=== PATIENT | female | born 1945 | race Caucasian/White ===

== ENCOUNTER → 2016-04-15 | Outpatient (CLI) | payer OTHER ==
[~2016-04-15] MED LIST: BUDE160A3 INH; DULO60CA PO; FENO160T8 PO; FER325T PO; IMIQ5CRE4 EX; LOSA50TA6 PO; METF-312 PO; METO25TA62 PO; MONT10TA23 PO; MONT5CHW17 PO; SIMV-8 PO; WARF2.5T39 PO
== END | disposition home or self-care (01) ==
LOC: LAB 14:09
PROVIDERS: ATTEND Family Medicine
DX: E11.9 Type 2 diabetes mellitus without complications (principal)
CPT/HCPCS: 36415; 83036

== ENCOUNTER 2016-06-03 16:44 | Emergency (ER) | payer OTHER ==
[~2016-06-03] VITALS: Ht 157.5 cm; Wt 77.1 kg
[2016-06-03 19:40] VITALS: BP 132/80
[2016-06-03] MEDS ORDERED: TETANUS-DIPTH-ACEL PERTUSSIS 0.5ML SYRG IM ONE (21:00)
[2016-06-03] MEDS ORDERED: NEOMYCIN-BACITRACIN-POLYM UNITDOSE PKG TOP OINT TOP ONE (21:00)
== END 2016-06-03 22:29 | disposition home or self-care (01) ==
LOC: ER 16:48
DX: S61.512A Laceration without foreign body of left wrist, initial encounter (principal); S63.502A Unspecified sprain of left wrist, initial encounter; S60.222A Contusion of left hand, initial encounter; S00.03XA Contusion of scalp, initial encounter; J45.909 Unspecified asthma, uncomplicated; J44.9 Chronic obstructive pulmonary disease, unspecified; I11.0 Hypertensive heart disease with heart failure; I50.9 Heart failure, unspecified; E11.9 Type 2 diabetes mellitus without complications; Z23 Encounter for immunization; Z88.6 Allergy status to analgesic agent; Z88.1 Allergy status to other antibiotic agents; W19.XXXA Unspecified fall, initial encounter; Y93.01 Activity, walking, marching and hiking; Y99.8 Other external cause status; Y92.89 Other specified places as the place of occurrence of the external cause
CPT/HCPCS: 12002; 70450; 73110; 73130; 90471; 90715

== ENCOUNTER 2024-01-10 11:51 | Inpatient (IN) | payer OTHER ==
[~2024-01-10] VITALS: Ht 170.2 cm; Wt 87.0 kg
[~2024-01-10 11:51] MED LIST changes: -DULO60CA PO; +DULO60CA41 PO; +EZET10TA22 PO; +FENO160T PO; -FENO160T8 PO; +FLUT1AER17 IN; +FURO40TA4 PO; +HYDR25TA88 PO; +IMIQ5CRE EX; -IMIQ5CRE4 EX; +INSLANTI SC; +INSU100I54 SC; +LOSA-534 PO; -LOSA50TA6 PO; -METF-312 PO; +METF-370 PO; -METO25TA62 PO; +METO25TA93 PO; +MONT5CHW12 PO; -MONT5CHW17 PO; +PRED1PAK8 PO; +SEMA2INJ3 SC; -SIMV-8 PO; +SIMV20TA20 PO; +TRAZ-227 PO; +WARF-110 PO; -WARF2.5T39 PO
--- NOTE | 2024-01-10 12:05 | ECG ---
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
--- NOTE | 2024-01-10 12:09 | ED.PDOC ---
History of Present Illness HPI Comments 78-year-old female brought by paramedics after a fall which happened last Tuesday. Patient was standing and fell right onto her face. Came today because she is having severe right shoulder right rib pain unable to ambulate because of the pain. He is able to move her extremities. She does have swelling of the left knee which has been there for almost a year. She had revision of her left knee one year ago at [facility]. Patient history of hypotension atrial fibrillation currently on warfarin. The pain of the right shoulder is 10/10. She has not seen any provider after the fall. She does have a bruise on the left upper lip. She does not remember the event clearly. She denies any symptoms prior to the fall. Chief Complaint: Fall Injury Time Seen by MD: 11:52 Primary Care Provider: DIANNE Reviewed Notes: Nurses Notes, Medications, Allergies Allergies: Coded Allergies: Codeine (Unverified Allergy, Severe, 01/23/14) Sulfa Antibiotics (Unverified Allergy, Severe, 01/23/14) Home Meds Active Scripts Ferrous Sulfate (FERROUS SULFATE) 325 Mg Tb, 325 MG PO TIDWM, #100 BOTTLE Prov:SHERLYN ARCE MD 11/01/14 Reported Medications Budesonide-Formoterol Fumarate (Symbicort) 1 Aer Aer, 2 PUFF INH BID, #10.6 GRAMS 3 Refills 10/28/14 Warfarin Sodium (Warfarin Sodium) 2.5 Mg Tab, 2.5 MG PO DAILY, TAB 10/28/14 Montelukast Sodium (Singulair) 10 Mg Tab, 500 MG PO DAILY, TAB 10/28/14 Montelukast Sodium (Singulair) 5 Mg Chw, 5 MG PO, CHW 10/28/14 Losartan Potassium (Losartan Potassium) 50 Mg Tab, 60 MG PO DAILY, TAB 10/28/14 Fenofibrate (Fenofibrate) 160 Mg Tab, 145 MG PO DAILY, TAB 10/28/14 Simvastatin (Simvastatin) 20 Mg Tab, 20 MG PO DAILY, TAB 10/28/14 Metformin Hydrochloride (Metformin Hcl) 500 Mg Tab, 500 MG PO BID, TAB 10/28/14 Metoprolol Succinate (Metoprolol Succinate Er) 25 Mg Tab, 25 MG PO DAILY, TAB 10/28/14 Imiquimod (Imiquimod) 5 % Cre, 5 % EX, CRE 10/28/14 Duloxetine Hcl (Cymbalta) 60 Mg Cap, 60 MG PO DAILY, CAP 10/28/14 Information Source: Patient, Emergency Med Personnel Mode of Arrival: EMS Severity: Moderate Timing: Days Duration: Since onset Past Medical History PAST MEDICAL HISTORY: AFIB, DM, HTN Surgical History: Denies all surgeries COMMERCIAL LITIGATION ATTORNEY History: No Pertinent COMMERCIAL LITIGATION ATTORNEY History Family History Family History: Unknown Social History Smoker: Non-Smoker Alcohol: Denies ETOH Use Drugs: Denies Drug Use Lives In: Home Constitutional: denies: chills, diaphoresis, fatigue, fever, malaise, sweats, weakness, others EENTM: denies: blurred vision, double vision, ear bleeding, ear discharge, ear drainage, ear pain, ear ringing, eye pain, eye redness, hearing loss, mouth pain, mouth swelling, nasal discharge, nose bleeding, nose congestion, nose pain, photophobia, tearing, throat pain, throat swelling, voice changes, others Respiratory: denies: cough, hemoptysis, orthopnea, SOB at rest, shortness of breath, SOB with excertion, stridor, wheezing, others Cardiovascular: denies: chest pain, dizzy spells, diaphoresis, Dyspnea on exertion, edema, irregular heart beat, left arm pain, lightheadedness, palpitations, PND, syncope, others Gastrointestinal: denies: abdomen distended, abdominal pain, blood streaked bowels, constipated, diarrhea, dysphagia, difficulty swallowing, hematemesis, melena, nausea, poor appetite, poor fluid intake, rectal bleeding, rectal pain, vomiting, others Genitourinary: denies: abnormal vagina bleeding, burning, dyspareunia, dysuria, flank pain, frequency, hematuria, incontinence, pain, , vagina discharge, urgency, others Neurological: denies: dizziness, fainting, headache, left sided numbness, left sided weakness, numbness, paresthesia, pre-existing deficit, right sided numbness, right sided weakness, seizure, speech problems, tingling, tremors, weakness, others Musculoskeletal: reports: others (Right shoulder); denies: back pain, gout, joint pain, joint swelling, muscle pain, muscle stiffness, neck pain Integumetry: denies: bruises, change in color, change in hair/nails, dryness, laceration, lesions, lumps, rash, wounds, others Allergic/Immunocompromised: denies: Difficulty Healing, Frequent Infections, Hives, Itching, others Hematologic/Lymphatic: denies: anemia, blood clots, easy bleeding, easy bruisin g, swollen glands, others Endocrine: denies: excessive hunger, excessive sweating, excessive thirst, excessive urination, flushing, intolerance to cold, intolerance to heat, unexplained weight gain, unexplained weight loss, others Psychiatric: denies: anxiety, bipolar disorder, depression, hopeless, panic disorder, schizophrenia, sleepless, suicidal, others Physical Exam General Appearance: Moderate Distress HEENT: Normal ENT Inspection, Pharynx Normal, TMs Normal Neck: Full Range of Motion, Non-Tender, Normal, Normal Inspection Respiratory: Chest Non-Tender, Lungs Clear, No Accessory Muscle Use, No Respiratory Distress, Normal Breath Sounds Cardiovascular: No Edema, No JVD, No Murmur, No Gallop, Normal Peripheral Pulses, Regular Rate/Rhythm Breast Exam: Deferred Gastrointestinal: No Organomegaly, Non Tender, No Pulsatile Mass, Normal Bowel Sounds, Soft Genitalia: Deferred Pelvic: Deferred Rectal: Deferred Extremities: No calf tenderness, Normal capillary refill, Non-tender, No pedal edema Musculoskeletal : Apperance: Normal Neurologic: Alert, lead accountant II-XII nml as Tested, No Motor Deficits, Normal Affect, Normal Mood, No Sensory Deficits Cerebellar Function: NOT DONE Reflexes: NOT DONE Skin: Dry, Normal Color, Warm Peripheral Pulses: 3+ Radial (R), 3+ Radial (L) Lymphatic: No Adenopathy Was a procedure done? Was a procedure done?: No Differential Dx Considerations may include: Head injury Musculoskeletal pain X-Ray, Labs, Meds, VS Vital Signs Date Time Temp Pulse Resp B/P (MAP) Pulse Ox O2 Delivery O2 Flow Rate FiO2 01/10/24 13:45 70 16 140/69 (92) 91 01/10/24 13:44 70 16 140/69 01/10/24 13:18 71 16 148/59 01/10/24 11:59 81 01/10/24 11:57 98.9 95 18 141/83 (102) 96 Lab Test 01/10/24 13:13 Range/Units White Blood Count 14.7 H 4.4-10.8 10^3/uL Red Blood Count 4.37 4.0-5.20 10^6/uL Hemoglobin 14.8 12.2-16.2 g/dL Hematocrit 44.9 36.0-46.0 % Mean Corpuscular Volume 102.7 H 80.0-100.0 fL Mean Corpuscular Hemoglobin 33.9 H 28.0-32.0 pg Mean Corpuscular Hemoglobin Concent 33.0 32.0-36.0 g/dL Red Cell Distribution Width 14.3 11.8-14.3 % Platelet Count 257 140-450 10^3/uL Mean Platelet Volume 9.9 6.9-10.8 fL Neutrophils (%) (Auto) 91.1 H 37.0-80.0 % Lymphocytes (%) (Auto) 7.0 L 10.0-50.0 % Monocytes (%) (Auto) 1.8 0.0-12.0 % Eosinophils (%) (Auto) 0.0 0.0-7.0 % Basophils (%) (Auto) 0.1 0.0-2.0 % Neutrophils # (Auto) 13.4 H 1.6-8.6 10 ^3/uL Lymphocytes # (Auto) 1.0 0.4-5.4 10 ^3/uL Monocytes # (Auto) 0.3 0-1.3 10 ^3/uL Eosinophils # (Auto) 0 0-0.8 10 ^3/uL Basophils # (Auto) 0 0-0.2 10 ^3/uL Nucleated Red Blood Cells 0.0 % Sodium Level 127 L 136-145 mmol/L Potassium Level 5.3 H 3.5-5.1 mmol/L Chloride Level 94 L 98-107 mmol/L Carbon Dioxide Level 23 20-31 mmol/L Anion Gap 10 5-15 Blood Urea Nitrogen 49 H 9-23 mg/dL Creatinine 2.27 H 0.550-1.02 mg/dL Glomerular Filtration Rate Calc 21 >90 mL/min BUN/Creatinine Ratio 21.6 H 10.0-20.0 Serum Glucose 661 *H 74-106 mg/dL Calcium Level 9.4 8.7-10.4 mg/dL Troponin I High Sensitivity 12 </=34 ng/L Beta-Hydroxybutyric Acid Pending Current Medications Medications (Trade) Dose Ordered Sig/Jennifer Route Start Time Stop Time Status Last Admin Morphine Sulfate 4 mg ONCE ONCE IV 01/10/24 13:00 01/10/24 13:01 DC 01/10/24 13:18 Ondansetron HCl (Zofran) 4 mg ONCE ONCE IV 01/10/24 13:00 01/10/24 13:01 DC 01/10/24 13:16 Sodium Chloride 1,000 ml @ 1,000 mls/hr Q1H ONCE IV 01/10/24 14:30 01/10/24 15:29 01/10/24 14:36 Insulin Human Regular (InsuLIN R) 10 units ONCE ONCE IV 01/10/24 14:30 01/10/24 14:50 DC 01/10/24 14:38 Patient alert. Has a bruise on the left upper lip. Vitals stable. Answering all questions. Status post fall last Tuesday. History of atrial fibrillation. She does take warfarin. She has not been seen by any provider since her fall. Having severe pain. Reviewed her previous visit. Blood sugar elevated. Anion gap within normal limits. Kidney function elevated. Possible dehydration. Establish intravenous access. Was given fluids. Was given pain medication. WBC elevated. Possible sepsis from urine. Explained to the patient. Time of 1ST Reevaluation: 12:07 Reevaluation 1ST: Unchanged Patient Education/Counseling: Diagnosis, Treatment, Prognosis Family Education/Counseling: No Family Present Departure 1 Departure Time of Disposition: 12:08 Impression: Primary Impression: Head injury Qualified Codes: S09.90XA - Unspecified injury of head, initial encounter Additional Impressions: Costochondral chest pain Musculoskeletal pain Hyperglycemia Sepsis due to urinary tract infection Dehydration Disposition: ADMITTED INPATIENT Admit to: Med Surg Condition: Guarded Critical Care Note Critical Care Time?: Yes (45 min-critical care time only) Stability Stability form required: No Heart Score Heart Score: Heart Score Response (Comments) Value History Slightly Suspicious 0 EKG Normal 0 Age >65 2 Risk Factors >3 or Hx ASHD 2 Troponin Normal limit 0 Total 4 JAVAD ASHFORD MD Jan 10, 2024 12:09
--- NOTE | 2024-01-10 13:01 | DVH ---
EXAM: CT HEAD WITHOUT CONTRAST HISTORY: fall COMPARISON: None TECHNIQUE: Axial images were obtained and reformatted in coronal and sagittal planes. All CT scans at this medical facility are performed using dose modulation techniques as appropriate t o a performed exam including the following: Automated exposure control was utilized; adjustment of th e MA and/or KV according to patient size; and use of iterative reconstruction technique. CT Dose: CTDI volume is 50 mGy. Dose-length product is 704 mGy*cm FINDINGS: There is age concordant parenchymal volume loss. There are mild patchy chronic small-vessel ischemic changes in the supratentorial white matter. There is a small hypodense focus in the right basal gangl ia which may represent a chronic lacunar infarct. There is no evidence of acute intracranial hemorrha ge, mass, mass effect midline shift. There is no hydrocephalus or extra-axial fluid collection. The visualized paranasal sinuses and mastoid air cells are clear. The calvarium is intact. IMPRESSION: 1. No acute intracranial process. HS:Y
--- NOTE | 2024-01-10 13:02 | DVH ---
CLINICAL INDICATION: Trauma, pain TECHNIQUE: XY R SHOULDER 2+ VIEW XRAY Comparison: None FINDINGS/IMPRESSION: There is no evidence of acute fracture or dislocation. Soft tissues are unremarkable.
--- NOTE | 2024-01-10 13:03 | DVH ---
CHEST RADIOGRAPH Indication:fall Technique: Single frontal view of the chest with 3 views of the right ribs were obtained. Comparison: None FINDINGS: Lines and Tubes: None Lungs: No focal consolidation. Pleura: No effusion. No pneumothorax. Cardiomediastinal contours: [id number]-lr-[id number] cardiomegaly with mild atherosclerotic calcification and uncoiling of the aorta. Bones: No acute osseous abnormality. No acute rib fractures are visualized. 6 mm nodular density of t he right lateral chest wall / breast tissue which may represent a nodule /lymph node. IMPRESSION: No acute cardiopulmonary disease. No acute rib fractures.
[2024-01-10] MEDS: ONDANSETRON HCL 4 MG/2 ML VIAL IV ONE (13:16)
[2024-01-10] MEDS: MORPHINE SULFATE 4 MG/ML SYR/VIAL IV ONE (13:18)
[2024-01-10 13:45] LABS: Basophils # (auto) 0 10 ^3/uL (0-0.2); Basophils % (auto) 0.1 % (0.0-2.0); Eosinophils # (auto) 0 10 ^3/uL (0-0.8); Monocytes # (auto) 0.3 10 ^3/uL (0-1.3)
[2024-01-10 13:47] LABS: Hematocrit 44.9 % (36.0-46.0); Hemoglobin 14.8 g/dL (12.2-16.2); Mean Corpuscular Hemoglobin 33.9 pg (28.0-32.0); Mean Corpuscular Volume 102.7 fL (80.0-100.0); Monocytes % (auto) 1.8 % (0.0-12.0); Neutrophils # (auto) 13.4 10 ^3/uL (1.6-8.6); Neutrophils % (auto) 91.1 % (37.0-80.0); Platelet Count (auto) 257 10^3/uL (140-450); Red Blood Cells 4.37 10^6/uL (4.0-5.20); Red Cell Distribution Width 14.3 % (11.8-14.3); White Blood Cell 14.7 10^3/uL (4.4-10.8)
[2024-01-10 13:54] LABS: Chloride 94 mmol/L (98-107); Potassium 5.3 mmol/L (3.5-5.1); Sodium 127 mmol/L (136-145)
[2024-01-10 13:55] LABS: Anion Gap 10 (5-15); Calcium 9.4 mg/dL (8.7-10.4); Carbon Dioxide 23 mmol/L (20-31)
[2024-01-10 14:00] LABS: BUN/Creatinine Ratio 21.6 (10.0-20.0); Blood Urea Nitrogen 49 mg/dL (9-23)
[2024-01-10 14:16] LABS: Glucose 661 mg/dL (74-106)
[2024-01-10] MEDS: SODIUM CHLORIDE 0.9% 1,000 ML IV ONE (14:36)
[2024-01-10] MEDS: InsuLIN REG 1unit/0.01ml Soln (100units/ml) IV ONE (14:38)
[2024-01-10 15:00] VITALS: PULSE 67; RESP 14; O2SAT 93
[2024-01-10] MEDS: PIPERACILLIN-TAZOB 3.375GM 100 ML IV ONE (15:21)
[2024-01-10 18:39] LABS: Urine Bacteria FEW /hpf (None Seen); Urine Blood Negative /uL (Negative); Urine Budding Yeast OCCASIONAL /hpf (None Seen); Urine Clarity Clear (Clear); Urine Color Colorless (Yellow); Urine Protein, UAD Negative (Negative); Urine Specific Gravity 1.023 (1.001-1.035); Urine Urobilinogen Normal (Negative); Urine WBC 58 /hpf (0 - 5)
--- NOTE | 2024-01-10 19:14 | DVHHP2 ---
History of Present Illness Reason for Visit: Fall with injury History of Present Illness The patient is a 78-year-old female with past medical history of AFib, DM, and hypertension who presented to [facility] ED for evaluation of fall at home last Tuesday. Patient reports she was standing and fell right onto her face, having severe right shoulder, right rib pain, and unable to ambulate because of the pain, rating pain 10/10 numeric scale, getting worse today that prompted this visit. She had revision of her left knee one year ago at [facility]. Patient was seen and evaluated in the ED, laboratory data shows WBC 14.7, platelets 257, sodium 127, potassium 5.3, BUN 49, creatinine 2.27, glucose 661, troponin 12, acetone 0.482, blood pressure 145 over 80, heart rate 82, temperature 98.9 F, O2 saturation 93% on oxygen. Head CT showed no acute intracranial process. Patient was started on IV antibiotic regimen Zosyn, please see medication orders section in the computer. On my assessment, patient denies chest pain, no headache, no dizziness, no diaphoresis, currently on oxygen, no nausea, no vomiting, no fever, no chills. Patient was admitted for further evaluation and medical management. Past Medical History AFIB, DM, HTN Past Surgical History Denies all surgeries Family History Reviewed, noncontributory to the management of this case. Past Social History The patient lives at home, denies smoking, alcohol or illicit drugs abuse. Review of Systems Constitutional: Yes: Weakness; No: Fever, Chills, Sweats, Malaise, Other Eyes: No: Pain, Vision change, Conjunctivae inflammation, Eyelid inflammation, Other, Redness ENT: No: Ear pain, Ear discharge, Nose pain, Nose discharge, Nose congestion, Mouth pain, Mouth swelling, Throat pain, Throat swelling, Other Respiratory: No: Cough, Dry, Shortness of breath, SOB with excertion, Wheezing, Hemoptysis, Pleuritic Pain, Sputum, Wheezing, Other Cardiovascular: No: Chest Pain, Palpitations, Orthopnea, Paroxysmal Noc. Dyspnea, Edema, Lt Headedness, Other Gastrointestinal: No: Nausea, Vomiting, Abdominal Pain, Diarrhea, Constipation, Melena, Hematochezia, Other Genitourinary: No Dysuria, No Frequency, No Incontinence, No Hematuria, No Retention, No Other Musculoskeletal: other (Right rib pain), shoulder pain (Right ); No: neck pain, arm pain, back pain, hand pain, leg pain, foot pain Skin: No: Rash, Lesions, Jaundice, Bruising, Other Neurological: No: Weakness, Numbness, Incoordination, Change in speech, Co nfusion, Seizures, Other Allergies: Coded Allergies: Codeine (Unverified Allergy, Severe, 01/23/14) Sulfa Antibiotics (Unverified Allergy, Severe, 01/23/14) Exam Vital Signs Vital Signs Date Time Temp Pulse Resp B/P (MAP) Pulse Ox O2 Delivery O2 Flow Rate FiO2 01/10/24 18:42 80 14 145/80 (101) 93 01/10/24 15:00 Nasal Cannula* 2 28 01/10/24 11:57 98.9 General Appearance: Alert, Oriented X3, Cooperative, No acute distress HEENT: Atraumatic, PERRLA, EOMI, Mucous membr. moist/pink Respiratory: Clear to auscultation, Normal air movement Cardiovascular: Regular rate, Normal S1, Normal S2, No murmurs Abdominal: Normal bowel sounds, Soft, No tenderness, No hepatospenomegaly, No masses Extremities: No clubbing, No cyanosis, No edema, Normal pulses, No tenderness/swelling Skin: No rashes, No breakdown, No significant lesion Neuro: Normal speech, Normal tone, Sensation intact, Cranial nerves 3-12 NL, Reflexes 2+, Other (Generalized weakness) Psych/Mental Status: Mental status NL, Mood NL Labs/Xrays Labs Test 01/10/24 18:22 01/10/24 13:13 Range/Units Urine Color Colorless Yellow Urine Clarity Clear Clear Urine pH 5.0 5.0-9.0 Urine Specific [place] 1.023 1.001-1.035 Urine Protein Negative Negative Urine Ketones Negative Negative Urine Blood Negative Negative /uL Urine Nitrite Negative Negative Urine Bilirubin Negative Negative Urine Urobilinogen Normal Negative mg/dL Urine Leukocyte Esterase 2+ Negative /uL Urine RBC 6 0 - 4 /hpf Urine WBC 58 0 - 5 /hpf Urine Squamous Epithelial Cells Few <5 /hpf Urine Bacteria Few H None Seen /hpf Urine Yeast (Budding) Occasional None Seen /hpf Urine Glucose 4+ H Normal mg/dL White Blood Count 14.7 H 4.4-10.8 10^3/uL Red Blood Count 4.37 4.0-5.20 10^6/uL Hemoglobin 14.8 12.2-16.2 g/dL Hematocrit 44.9 36.0-46.0 % Mean Corpuscular Volume 102.7 H 80.0-100.0 fL Mean Corpuscular Hemoglobin 33.9 H 28.0-32.0 pg Mean Corpuscular Hemoglobin Concent 33.0 32.0-36.0 g/dL Red Cell Distribution Width 14.3 11.8-14.3 % Platelet Count 257 140-450 10^3/uL Mean Platelet Volume 9.9 6.9-10.8 fL Neutrophils (%) (Auto) 91.1 H 37.0-80.0 % Lymphocytes (%) (Auto) 7.0 L 10.0-50.0 % Monocytes (%) (Auto) 1.8 0.0-12.0 % Eosinophils (%) (Auto) 0.0 0.0-7.0 % Basophils (%) (Auto) 0.1 0.0-2.0 % Neutrophils # (Auto) 13.4 H 1.6-8.6 10 ^3/uL Lymphocytes # (Auto) 1.0 0.4-5.4 10 ^3/uL Monocytes # (Auto) 0.3 0-1.3 10 ^3/uL Eosinophils # (Auto) 0 0-0.8 10 ^3/uL Basophils # (Auto) 0 0-0.2 10 ^3/uL Nucleated Red Blood Cells 0.0 % Sodium Level 127 L 136-145 mmol/L Potassium Level 5.3 H 3.5-5.1 mmol/L Chloride Level 94 L 98-107 mmol/L Carbon Dioxide Level 23 20-31 mmol/L Anion Gap 10 5-15 Blood Urea Nitrogen 49 H 9-23 mg/dL Creatinine 2.27 H 0.550-1.02 mg/dL Glomerular Filtration Rate Calc 21 >90 mL/min BUN/Creatinine Ratio 21.6 H 10.0-20.0 Serum Glucose 661 *H 74-106 mg/dL Calcium Level 9.4 8.7-10.4 mg/dL Troponin I High Sensitivity 12 </=34 ng/L Beta-Hydroxybutyric Acid 0.482 H < 0.4 mmol/L PATIENT: MURTAZA CROUCH ACCT: [id number] UNIT: [id number] : 1945 LOC: ER ROOM / BED: / AGE / SEX: 78 / F ADM STATUS: REG ER SERVICE 1209 ORDERING PHYSICIAN: JAVAD ASHFORD MD PROCEDURE(s): HWOCT - HEAD WITHOUT CONTRAST REASON: fall ORDER NUMBER(s): [id number], ACCESSION NUMBER(s): [id number] EXAM: CT HEAD WITHOUT CONTRAST HISTORY: fall COMPARISON: None TECHNIQUE: Axial images were obtained and reformatted in coronal and sagittal planes. All CT scans at this medical facility are performed using dose modulation techniques as appropriate to a performed exam including the following: Automated exposure control was utilized; adjustment of the MA and/or KV according to patient size; and use of iterative reconstruction technique. CT Dose: CTDI volume is 50 mGy. Dose-length product is 704 mGy*cm FINDINGS: There is age concordant parenchymal volume loss. There are mild patchy chronic small-vessel ischemic changes in the supratentorial white matter. There is a small hypodense focus in the right basal ganglia which may represent a chronic lacunar infarct. There is no evidence of acute intracranial hemorrhage, mass, mass effect midline shift. There is no hydrocephalus or extra-axial fluid collection. The visualized paranasal sinuses and mastoid air cells are clear. The calvarium is intact. IMPRESSION: 1. No acute intracranial process. ORDERING PHYSICIAN: JAVAD ASHFORD MD PROCEDURE(s): RSHD2 - R SHOULDER 2+ VIEW XRAY REASON: fall ORDER NUMBER(s): [id number], ACCESSION NUMBER(s): [id number] CLINICAL INDICATION: Trauma, pain TECHNIQUE: XY R SHOULDER 2+ VIEW XRAY Comparison: None FINDINGS/IMPRESSION: There is no evidence of acute fracture or dislocation. Soft tissues are unremarkable. ORDERING PHYSICIAN: JAVAD ASHFORD MD PROCEDURE(s): RRIBS - R RIB XRAY REASON: fall ORDER NUMBER(s): [id number], ACCESSION NUMBER(s): [id number] CHEST RADIOGRAPH Indication:fall Technique: Single frontal view of the chest with 3 views of the right ribs were obtained. Comparison: None FINDINGS: Lines and Tubes: None Lungs: No focal consolidation. Pleura: No effusion. No pneumothorax. Cardiomediastinal contours: [id number] cardiomegaly with mild atheroscl erotic calcification and uncoiling of the aorta. Bones: No acute osseous abnormality. No acute rib fractures are visualized. 6 mm nodular density of the right lateral chest wall/breast tissue which may represent a nodule /lymph node. IMPRESSION: No acute cardiopulmonary disease. No acute rib fractures. Assessment/Plan Assessment/Plan Head injury Dehydration Costochondral chest pain Musculoskeletal pain Diabetes mellitus with hyperglycemia Urinary tract infection Unspecified injury of head, initial encounter Plan 1. Admit to telemetry unit 2. Breathing treatment 3. Pain control management 4. IV antibiotic management 5. Management of fluids and electrolytes 6. Consultation for Nephrology 7. Diagnostic test head CT 8. DVT prophylaxis-on Coumadin per pharmacy 9. Repeat labs CBC, CMP in a.m. 10. Home medication reviewed and reconciled 11. Continue with current medical management 12. Treatment plan discussed with patient and RN. Patient verbalized u nderstanding. Plan discussed with: Patient, Other (RN) My Orders Orders - MARYCRUZ LEO DNP Procedure Category Date Status Time Consistent DIET 01/11/24 Verified Carb(Ccho)Diabetes Breakfast Clonidine Hcl Tablet PHA 01/10/24 Verified (Catapres Tablet) 19:15 Problem List: (1) Head injury (2) Musculoskeletal pain (3) Dehydration (4) Urinary tract infection (5) Costochondral chest pain (6) Unspecified injury of head, initial encounter (7) Diabetes mellitus with hyperglycemia Date of Service: Jan 10, 2024 Billing Provider: MARYCRUZ LEO DNP Common Visit Codes: [id number] INP/OBS CARE (HIGH) MARYCRUZ LEO DNP Jan 10, 2024 19:14
[2024-01-10] MEDS ORDERED: MORPHINE SULFATE INJ 2 MG/ml SYRG IV PRN (19:15)
[2024-01-10] MEDS ORDERED: NITROGLYCERIN 0.4 MG SL TAB SL PRN (19:15)
[2024-01-10] MEDS ORDERED: cloNIDine HCL 0.1 MG TAB PO PRN (19:15)
[2024-01-10] MEDS ORDERED: DEXTROSE (50%) 50ML SYRG IV PRN (19:15)
[2024-01-10] MEDS ORDERED: DOCUSATE SOD 100 MG CAP PO PRN (19:15)
[2024-01-10] MEDS: ACCU-CHEK COMFORT CURVE STRIP VI SCH (20:00)
[2024-01-10 20:15] VITALS: PULSE 80; RESP 16; O2SAT 92
[2024-01-10] MEDS: cefTRIAXone 1GM/50ML D5W 50 ML IV SCH (21:34)
[2024-01-10] MEDS: SODIUM ZIRCONIUM CYCL 10 GM PAK PO ONE (21:34)
[2024-01-10] MEDS: SODIUM CHLORIDE 0.9% 1,000 ML IV SCH (21:34)
[2024-01-10] MEDS: InsuLIN REG 1unit/0.01ml Soln (100units/ml) SC SCH (21:35)
[2024-01-10 21:46] LABS: INR 1.6 (0.9-1.15); Partial Thromboplastin Time 30.1 SEC (24.5-34.5); Prothrombin Time 16.4 sec (9.3-11.8)
[2024-01-10 22:21] VITALS: O2SAT 94
[2024-01-10] MEDS: METOPROLOL TARTRATE 25 MG TAB PO SCH (22:32)
[2024-01-10] MEDS: WARFARIN SODIUM 2 MG TAB PO ONE (22:33)
[2024-01-10] MEDS: MORPHINE SULFATE INJ 2 MG/ml SYRG IV PRN (22:35)
[2024-01-10] MEDS ORDERED: WARF4TAB69 PO (22:43)
[2024-01-10] MEDS ORDERED: POTA-228 PO (22:45)
[2024-01-11] VITALS (8 sets, daily range): BP systolic 103–159; BP diastolic 60–78; PULSE 58–82; RESP 17–20; TEMP 96–98.1; O2SAT 91–96
[2024-01-11] MEDS: ACETAMINOPHEN 325 MG TAB PO PRN (00:15)
[2024-01-11 06:47] LABS: Basophils # (auto) 0.1 10 ^3/uL (0-0.2); Basophils % (auto) 0.4 % (0.0-2.0); Eosinophils # (auto) 0 10 ^3/uL (0-0.8); Eosinophils % (auto) 0.1 % (0.0-7.0); Hematocrit 41.3 % (36.0-46.0); Hemoglobin 14.1 g/dL (12.2-16.2); Lymphocytes # (auto) 2.5 10 ^3/uL (0.4-5.4); Mean Corpuscular Volume 99.8 fL (80.0-100.0); Monocytes # (auto) 0.8 10 ^3/uL (0-1.3); Monocytes % (auto) 5.5 % (0.0-12.0); Neutrophils # (auto) 11.3 10 ^3/uL (1.6-8.6); Platelet Count (auto) 249 10^3/uL (140-450); Red Blood Cells 4.14 10^6/uL (4.0-5.20); Red Cell Distribution Width 14.7 % (11.8-14.3); White Blood Cell 14.7 10^3/uL (4.4-10.8)
[2024-01-11 06:52] LABS: INR 1.76 (0.9-1.15); Partial Thromboplastin Time 31.6 SEC (24.5-34.5); Prothrombin Time 17.9 sec (9.3-11.8)
[2024-01-11 06:53] LABS: Alanine Aminotransferase 40 U/L (7-40); Albumin 3.9 g/dL (3.2-4.8); Alkaline Phosphatase 167 U/L (46-116); Anion Gap 7 (5-15); Aspartate Aminotransferase 26 U/L (13-40); BUN/Creatinine Ratio 20.9 (10.0-20.0); Blood Urea Nitrogen 42 mg/dL (9-23); Calcium 9.6 mg/dL (8.7-10.4); Carbon Dioxide 24 mmol/L (20-31); Chloride 106 mmol/L (98-107); Glucose 137 mg/dL (74-106); Potassium 3.8 mmol/L (3.5-5.1); Sodium 137 mmol/L (136-145)
[2024-01-11 06:54] LABS: Bilirubin, Total 0.9 mg/dL (0.2-1.0); Total Protein 6.5 g/dL (5.7-8.2)
[2024-01-11] MEDS ORDERED: TRAM50TA2 PO (09:32)
[2024-01-11] MEDS ORDERED: TORS10TA12 PO (09:32)
[2024-01-11] MEDS ORDERED: ALLO100T PO (09:32)
[2024-01-11] MEDS ORDERED: ATOR-47 PO (09:32)
--- NOTE | 2024-01-11 11:32 | DVH ---
RENAL ULTRASOUND CLINICAL HISTORY: CKD TECHNIQUE: Multiple ultrasound images of the kidneys and bladder were obtained. COMPARISON: None FINDINGS: The right kidney measures 8.0 cm in length. The left kidney measures 8.3 cm. Both kidneys appear echo genic with thin renal cortex. There is no sonographic evidence of discrete renal lesion, nephrolithia sis or hydronephrosis. Bladder grossly appears unremarkable with prevoid volume of 175 cc. IMPRESSION: 1. Echogenic renal parenchyma with thin renal cortex likely related to medical renal disease. HS:Y
--- NOTE | 2024-01-11 13:16 | DVHCONRES ---
Date Seen: Jan 11, 2024 Resident Creating Document: JHAJJ,SARPUNEET RESIDENT Referring Physician MIGUEL Harrison Reason for Consultation Acute renal injury History of Present Illness Patient is a 78-year-old female with a past medical history of type 2 diabetes mellitus, hypertension, congestive heart failure, CKD stage 3, COPD, paroxysmal atrial fibrillation came the ED with a chief complaint of right shoulder and right chest pain following a history of fall. Patient reported that she fell in her apartment and hit her head on Tuesday last week following which she started having pain in the right showed in the right side chest. Pain gradually worsened which prompted her to come to the hospital for further evaluation. Patient reported that her blood pressures had been on the higher side in the 180-190 SBP and her blood sugar levels were increased at home greater than 350 mg/dL which was the highest reading on the glucometer. Head CT did not show any acute intracranial process, chest x-ray shows no acute cardiopulmonary disease, no acute rib fractures. Shoulder x-rays shows no acute fracture or dislocation. Renal ultrasound shows right kidney 8 cm in length, left kidney 8.3 cm in length, echogenic renal parenchyma with thin renal cortex likely related to medical renal disease. Past Medical History type 2 diabetes mellitus, hypertension, congestive heart failure, CKD stage 3, COPD, paroxysmal atrial fibrillation, history of skin cancer Past Surgical History None reported Family History: FH: heart attack G8 MOTHER FH: kidney disease G8 FATHER FH: stroke G8 MOTHER Ischemic heart disease G8 FATHER Social History Lives with family denies smoking, alcohol, drug use Allergies: Coded Allergies: Codeine (Unverified Allergy, Severe, 01/23/14) Sulfa Antibiotics (Unverified Allergy, Severe, 01/23/14) Home Meds Active Scripts Ferrous Sulfate (FERROUS SULFATE) 325 Mg Tb, 325 MG PO TIDWM, #100 BOTTLE Prov:SHERLYN ARCE MD 11/01/14 Reported Medications Semaglutide (Ozempic) 2 Mg/3 Ml Inj, 2 MG SC, INJ 01/11/24 Insulin Glargine (Lantus) 100 Unit/Ml Inj, 100 UNIT SC, INJ 01/11/24 Hydralazine Hcl (Hydralazine Hcl) 25 Mg Tab, 25 MG PO for 30 Days, MG 01/11/24 Ezetimibe (Zetia) 10 Mg Tab, 10 MG PO, TAB 01/11/24 Allopurinol (Allopurinol) 100 Mg Tab, 100 MG PO DAILY for 30 Days, MG 01/11/24 Tramadol Hcl (Tramadol Hcl) 50 Mg Tab, 50 MG PO Q6HP PRN for PAIN SCALE 1 THRU 6, MG 01/11/24 Atorvastatin Calcium (ATORVASTATIN CALCIUM) 80 Mg Tab, 80 MG PO DAILY, TAB 01/11/24 Furosemide (Furosemide) 40 Mg Tab, 40 MG PO, TAB 01/11/24 Trazodone Hcl (Trazodone Hcl) 50 Mg Tab, 50 MG PO, MG 01/11/24 Duloxetine Hcl (Cymbalta) 60 Mg Cap, 60 MG PO, CAP 01/11/24 Torsemide (Torsemide) 10 Mg Tab, 10 MG PO, TAB 01/11/24 Potassium Chloride (Potassium Chloride ER) 10 Meq Tab, 1 TAB PO BID 01/10/24 Warfarin Sodium (Warfarin Sodium) 2 Mg Tab, 1 TAB PO DAILY 01/10/24 Budesonide-Formoterol Fumarate (Symbicort) 1 Aer Aer, 2 PUFF INH BID, #10.6 GRAMS 3 Refills 10/28/14 Montelukast Sodium (Singulair) 10 Mg Tab, 500 MG PO DAILY, TAB 10/28/14 Montelukast Sodium (Singulair) 5 Mg Chw, 5 MG PO, CHW 10/28/14 Simvastatin (Simvastatin) 20 Mg Tab, 20 MG PO DAILY, TAB 10/28/14 Metoprolol Succinate (Metoprolol Succinate Er) 25 Mg Tab, 25 MG PO DAILY, TAB 10/28/14 Imiquimod (Imiquimod) 5 % Cre, 5 % EX, CRE 10/28/14 Discontinued Reported Medications Warfarin Sodium (Warfarin Sodium) 2.5 Mg Tab, 2.5 MG PO DAILY, TAB 10/28/14 Losartan Potassium (Losartan Potassium) 50 Mg Tab, 60 MG PO DAILY, TAB 10/28/14 Fenofibrate (Fenofibrate) 160 Mg Tab, 145 MG PO DAILY, TAB 10/28/14 Metformin Hydrochloride (Metformin Hcl) 500 Mg Tab, 500 MG PO BID, TAB 10/28/14 Duloxetine Hcl (Cymbalta) 60 Mg Cap, 60 MG PO DAILY, CAP 10/28/14 Current Medications Current Medications Medications (Trade) Dose Ordered Sig/Jennifer Route PRN Reason Start Time Stop Time Status Last Admin Clonidine HCl (Catapres Tablet) 0.1 mg Q4HP PRN PO SBP>150 01/10/24 19:15 Metoprolol Tartrate (Lopressor Tablet) 25 mg BID PO 01/10/24 22:00 01/11/24 11:54 DC 01/11/24 09:06 Ceftriaxone Sodium 50 ml @ 100 mls/hr DAILY@09 IV 01/10/24 19:22 01/11/24 08:04 Diagnostic Test (Pha) (Accu-Chek Comfort Curve T) 1 strip IQ4HR 01/10/24 20:00 01/11/24 10:54 Insulin Human Regular (InsuLIN R) IQ4HR SC 01/10/24 20:00 01/11/24 11:02 Dextrose 50 ml UD PRN IV Blood Sugar LESS THAN 60 01/10/24 19:15 Sodium Chloride 1,000 ml @ 120 mls/hr Q8H20M IV 01/10/24 19:15 Hold 01/11/24 09:07 Ondansetron HCl (Zofran) 4 mg Q4HP PRN IV NAUSEA / VOMITING 01/10/24 19:15 Docusate Sodium (Colace Capsule) 100 mg BIDPRN PRN PO FOR CONSTIPATION 01/10/24 19:15 Acetaminophen (Tylenol Tablet) 650 mg Q6HP PRN PO PAIN SCALE 1-3 OR TEMP>100.4 01/10/24 19:15 01/11/24 00:15 Morphine Sulfate 2 mg Q4HPRN PRN IV SEVERE PAIN (7-10 PAIN SCALE) 01/10/24 19:15 01/11/24 09:08 Nitroglycerin (Ntrostat Sublingual) 0.4 mg Q5MINP PRN SL FOR CHEST PAIN 01/10/24 19:15 Morphine Sulfate 2 mg Q30M PRN IV FOR CHEST PAIN 01/10/24 19:15 Warfarin Sodium (Coumadin Per Rx Protocol) RX PROTOCOL PER PHARMACY PO 01/10/24 20:00 Furosemide (Lasix Tablet) 40 mg BIDD PO 01/11/24 18:00 Hydralazine HCl (Apresoline Tablet) 25 mg Q12HR PO 01/11/24 22:00 01/11/24 11:43 DC Metoprolol Succinate (Toprol Xl) 50 mg DAILY PO 01/12/24 10:00 Acetaminophen/ Hydrocodone Bitart ([place] 5/325MG Tab) 1 tab Q4HPRN PRN PO MODERATE PAIN (4-6 PAIN SCALE) 01/11/24 12:15 UNV Review of Systems Patient seen and examined at the bedside. Patient is alert and oriented to time, place and person. Patient reported moderate right shoulder and right chest pain with tenderness to touch. Patient denied chest pain, shortness of breath, dizziness, abdominal pain, nausea, vomiting. Patient's blood pressure 159/78 mmHg, heart rate 67 per minute, respiratory rate 18 per minute, SpO2 93% on room air. Vital Signs Vital Signs Date Time Temp Pulse Resp B/P (MAP) Pulse Ox O2 Delivery O2 Flow Rate FiO2 01/11/24 10:00 87 136/76 01/11/24 09:38 18 01/11/24 09:00 96.9 91 96.9 01/11/24 08:00 Room Air* 0 21 Physical Exam Physical Examination Gen - no pallor, no icterus, no cyanosis, no clubbing, no LAD, 1+ bilateral pedal edema . Skin - Patients skin is warm and dry. HEENT - normocephalic, atraumatic, moist mucous membranes. Neck - full ROM, no LAD, no JVD Pulmonary - B/L vesicular breath sounds with bibasilar crackles, no wheezing, no stridor. cardiovascular - normal S1,S2 heard. no murmurs heard. peripheral pulses normal radial 2+, pedal 2+. capillary refill normal <2 secs. GI - soft abdomen without tenderness to palpation . no hepatospleenomegaly. Bowel sounds + Neurological - Patient is A/O X 3 . Bilateral upper extremity strength 5/5, bilateral lower extremity strength 5/5, no facial droop, normal speech, no tremor, no sensory deficiets. Labs/Diagnostic Data Labs Test 01/11/24 10:51 01/11/24 06:01 01/10/24 18:22 01/10/24 13:13 Range/Units POC Glucose 165 H 70-106 mg/dl White Blood Count 14.7 H 4.4-10.8 10^3/uL Red Blood Count 4.14 4.0-5.20 10^6/uL Hemoglobin 14.1 12.2-16.2 g/dL Hematocrit 41.3 36.0-46.0 % Mean Corpuscular Volume 99.8 80.0-100.0 fL Mean Corpuscular Hemoglobin 34.0 H 28.0-32.0 pg Mean Corpuscular Hemoglobin Concent 34.0 32.0-36.0 g/dL Red Cell Distribution Width 14.7 H 11.8-14.3 % Platelet Count 249 140-450 10^3/uL Mean Platelet Volume 9.6 6.9-10.8 fL Neutrophils (%) (Auto) 77.0 37.0-80.0 % Lymphocytes (%) (Auto) 17.0 10.0-50.0 % Monocytes (%) (Auto) 5.5 0.0-12.0 % Eosinophils (%) (Auto) 0.1 0.0-7.0 % Basophils (%) (Auto) 0.4 0.0-2.0 % Neutrophils # (Auto) 11.3 H 1.6-8.6 10 ^3/uL Lymphocytes # (Auto) 2.5 0.4-5.4 10 ^3/uL Monocytes # (Auto) 0.8 0-1.3 10 ^3/uL Eosinophils # (Auto) 0 0-0.8 10 ^3/uL Basophils # (Auto) 0.1 0-0.2 10 ^3/uL Nucleated Red Blood Cells 0.0 % Prothrombin Time 17.9 H 9.3-11.8 sec Prothrombin Time INR 1.76 H 0.9-1.15 Activated Partial Thromboplast Time 31.6 24.5-34.5 SEC Sodium Level 137 # 136-145 mmol/L Potassium Level 3.8 3.5-5.1 mmol/L Chloride Level 106 # 98-107 mmol/L Carbon Dioxide Level 24 20-31 mmol/L Anion Gap 7 5-15 Blood Urea Nitrogen 42 H 9-23 mg/dL Creatinine 2.01 H 0.550-1.02 mg/dL Glomerular Filtration Rate Calc 25 >90 mL/min BUN/Creatinine Ratio 20.9 H 10.0-20.0 Serum Glucose 137 H 74-106 mg/dL Hemoglobin A1c 12.5 H <5.7 % A1C Calcium Level 9.6 8.7-10.4 mg/dL Phosphorus Level 5.1 2.4-5.1 mg/dL Total Bilirubin 0.9 0.2-1.0 mg/dL Aspartate Amino Transferase (AST) 26 13-40 U/L Alanine Aminotransferase (ALT) 40 7-40 U/L Alkaline Phosphatase 167 H 46-116 U/L Total Protein 6.5 5.7-8.2 g/dL Albumin 3.9 3.2-4.8 g/dL Parathyroid Hormone (Intact) 171.6 H 18.4-80.1 pg/mL Urine Color Colorless Yellow Urine Clarity Clear Clear Urine pH 5.0 5.0-9.0 Urine Specific [place] 1.023 1.001-1.035 Urine Protein Negative Negative Urine Ketones Negative Negative Urine Blood Negative Negative /uL Urine Nitrite Negative Negative Urine Bilirubin Negative Negative Urine Urobilinogen Normal Negative mg/dL Urine Leukocyte Esterase 2+ Negative /uL Urine RBC 6 0 - 4 /hpf Urine WBC 58 0 - 5 /hpf Urine Squamous Epithelial Cells Few <5 /hpf Urine Bacteria Few H None Seen /hpf Urine Yeast (Budding) Occasional None Seen /hpf Urine Glucose 4+ H Normal mg/dL Troponin I High Sensitivity 12 </=34 ng/L Beta-Hydroxybutyric Acid 0.482 H < 0.4 mmol/L Microbiology Date/Time Source Procedure Growth Status 01/10/24 18:22 Voided Urine Urine Culture - Preliminary Resulted Plan/Recommendation Assessment and plan # RAJESH prerenal on CKD stage 3 likely hemodynamically mediated underlying ?CHF exacerbation - serum creatinine 2.27--> 2.01 - BUN 49--> 42 - serum sodium 137 - urine creatinine 73.12, urine sodium 11 - FENa 0.2% - continue diuresis with furosemide 40 mg b.i.d. p.o. and metoprolol succinate - strict I&Os - avoid nephrotoxic medication - monitor electrolytes # CKD stage 3-4 likely due to underlying uncontrolled longstanding T2DM - HbA1c 12.5 - urine total protein 50.8 mg/dL, urine glucose 4+ - renal ultrasound shows right kidney 8.0 cm, left kidney 8.3 cm with Echogenic renal parenchyma with thin renal cortex likely related to medical renal disease - parathyroid hormone 171.6 mg/dl - recommend strict blood glucose control - continue outpatient follow up with Nephrology for further workup # paroxysmal atrial fibrillation # COPD # fall with right shoulder injury # ? Syncope Goals of care discussed with the patient and the family for over 20 minutes. Full code. Plan discussed with Addendum Patient seen and examined, plan discussed with resident. Agree with above, we will follow closely Plan discussed with: Patient, Other EDGAR MURRAY RESIDENT Jan 11, 2024 13:16 YESSICA JOHNSON MD Jan 11, 2024 18:17
[2024-01-11] MEDS: HYDROcodone-ACET 5/325MG TAB PO PRN (14:13)
[2024-01-11] MEDS: FUROSEMIDE 40 MG TAB PO ONE (14:13)
[2024-01-11 14:29] LABS: Protein, Urine 50.8 mg/dL (1-14)
[2024-01-11 14:32] LABS: Creatinine, Urine 73.12 mg/dL (30.0-125.0); Urine Protein/Creatinine Ratio 0.69
--- NOTE | 2024-01-11 16:06 | DVHPN2 ---
Subjective 78 year old female fell at home at night 5 days ago She injured her right hand, knees, face Xrays no fractures Changes from previous H/P or p: Changes Eyes: No Pain, No Vision change, No Conjunctivae inflammation, No Eyelid inflammation, No Other, No Redness ENT: No Ear pain, No Ear discharge, No Nose pain, No Nose discharge, No Nose congestion, No Mouth pain, No Mouth swelling, No Throat pain, No Throat swelling, No Other Cardiovascular: No Chest Pain, No Palpitations, No Orthopnea, No Paroxysmal Noc. Dyspnea, No Edema, No Lt Headedness, No Other Respiratory: No Cough, No Dry, No Shortness of breath, No SOB with excertion, No Wheezing, No Hemoptysis, No Pleuritic Pain, No Sputum, No Other Gastrointestinal: No Nausea, No Vomiting, No Abdominal Pain, No Diarrhea, No Constipation, No Melena, No Hematochezia, No Other Genitourinary: No Dysuria, No Frequency, No Incontinence, No Hematuria, No Retention, No Other Musculoskeletal: other (Right rib pain); No neck pain; shoulder pain (Right ); No arm pain, No back pain, No hand pain, No leg pain, No foot pain Skin: No Rash, No Lesions, No Jaundice, No Bruising, No Other Objective Vitals Vital Signs Date Time Temp Pulse Resp B/P (MAP) Pulse Ox O2 Delivery O2 Flow Rate FiO2 01/11/24 14:13 156/78 01/11/24 13:00 97.9 67 18 91 97.9 01/11/24 08:00 Room Air* 0 21 Intake/Output Intake and Output 01/11/24 07:00 Intake Total 1350 ml Balance 1350 ml Intake Oral 200 ml IV Total 1150 ml General Appearance: Alert, Oriented X3, Cooperative, No acute distress Lungs: Clear to auscultation, Normal air movement Cardiovascular: Regular rate, Normal S1, Normal S2 Abdomen: Normal bowel sounds, Soft, No tenderness Extremities: No edema Medications Current Medications Medications Dose Ordered Sig/Jennifer Route Start Time Stop Time Status Last Admin Dose Admin Clonidine HCl 0.1 mg Q4HP PRN PO 01/10/24 19:15 Ceftriaxone Sodium 50 ml @ 100 mls/hr DAILY@09 IV 01/10/24 19:22 01/11/24 08:04 100 MLS/HR Diagnostic Test (Pha) 1 strip IQ4HR 01/10/24 20:00 01/11/24 10:54 1 STRIP Insulin Human Regular IQ4HR SC 01/10/24 20:00 01/11/24 11:02 4 UNITS Dextrose 50 ml UD PRN IV 01/10/24 19:15 Sodium Chloride 1,000 ml @ 120 mls/hr Q8H20M IV 01/10/24 19:15 Hold 01/11/24 09:07 120 MLS/HR Ondansetron HCl 4 mg Q4HP PRN IV 01/10/24 19:15 Docusate Sodium 100 mg BIDPRN PRN PO 01/10/24 19:15 Acetaminophen 650 mg Q6HP PRN PO 01/10/24 19:15 01/11/24 00:15 650 MG Morphine Sulfate 2 mg Q4HPRN PRN IV 01/10/24 19:15 01/11/24 09:08 2 MG Nitroglycerin 0.4 mg Q5MINP PRN SL 01/10/24 19:15 Morphine Sulfate 2 mg Q30M PRN IV 01/10/24 19:15 Warfarin Sodium RX PROTOCOL PER PHARMACY PO 01/10/24 20:00 Furosemide 40 mg BIDD PO 01/11/24 18:00 Metoprolol Succinate 50 mg DAILY PO 01/12/24 10:00 Acetaminophen/ Hydrocodone Bitart 1 tab Q4HPRN PRN PO 01/11/24 12:15 01/11/24 14:13 1 TAB Laboratory Results Laboratory Tests 01/11/24 06:01 Chemistry Test 01/11/24 06:01 Albumin 3.9 g/dL (3.2-4.8) Calcium Level 9.6 mg/dL (8.7-10.4) Phosphorus Level 5.1 mg/dL (2.4-5.1) Total Protein 6.5 g/dL (5.7-8.2) Coagulation Test 01/10/24 20:32 01/11/24 06:01 Prothrombin Time 16.4 sec (9.3-11.8) H 17.9 sec (9.3-11.8) H Prothrombin Time INR 1.60 (0.9-1.15) H 1.76 (0.9-1.15) H Activated Partial Thromboplast Time 30.1 SEC (24.5-34.5) 31.6 SEC (24.5-34.5) LFT Test 01/11/24 06:01 Alanine Aminotransferase (ALT) 40 U/L (7-40) Alkaline Phosphatase 167 U/L (46-116) H Aspartate Amino Transferase (AST) 26 U/L (13-40) Total Bilirubin 0.9 mg/dL (0.2-1.0) HgA1c, TSH Test 01/11/24 06:01 Hemoglobin A1c 12.5 % A1C (<5.7) H Urinalysis Test 01/10/24 18:22 01/11/24 14:07 Urine Color Colorless (Yellow) Urine Clarity Clear (Clear) Urine pH 5.0 (5.0-9.0) Urine Specific [place] 1.023 (1.001-1.035) Urine Protein Negative (Negative) Urine Ketones Negative (Negative) Urine Blood Negative /uL (Negative) Urine Nitrite Negative (Negative) Urine Bilirubin Negative (Negative) Urine Urobilinogen Normal mg/dL (Negative) Urine Leukocyte Esterase 2+ /uL (Negative) Urine RBC 6 /hpf (0 - 4) Urine WBC 58 /hpf (0 - 5) Urine Squamous Epithelial Cells Few /hpf (<5) Urine Bacteria Few /hpf (None Seen) H Urine Yeast (Budding) Occasional /hpf (None Urine Glucose 4+ mg/dL (Normal) H Urine Creatinine 73.12 mg/dL (30.0-125.0) Urine Protein/Creatinine Ratio 0.69 Urine Sodium 11 mmol/L (40-220) L Urine Total Protein 50.8 mg/dL (1-14) H Microbiology Microbiology Date/Time Source Procedure Growth Status 01/10/24 18:22 Voided Urine Urine Culture - Preliminary Resulted Assessment/Plan Assessment/Plan Fall Rule out right hand Fx Syncope CKD h/o CHF Paroxysmal afib on Coumadin h/o DVT and PE HTN PLAN: X-Rays R hand MRI brain Carotid US Echo Nephrology Neurology Cardiology Switch Coumadin to Eliquis Plan discussed with: Patient Date of Service: Jan 11, 2024 Billing Provider: ANTHONY REYES MD Common Visit Codes: NOT BILLABLE ANTHONY REYES MD Jan 11, 2024 16:06
[2024-01-11] MEDS: FUROSEMIDE 40 MG TAB PO SCH (16:17)
--- NOTE | 2024-01-11 16:53 | DVHSR ---
APPROVED REPORT EXAM: Two-dimensional and M-mode echocardiogram with Doppler and color Doppler. Blood Pressure: 136/76 mmHg INDICATION H/O CHF RISK FACTORS Obesity: Height: 5'7", Weight: 190 DIMENSIONS LVDd3.9 (3.8-5.7cm)LA (2D)3.1 (1.9-4.0cm)Aortic Root2.8 (2.0-3.7cm) LVDs2.7 (2.5-4.0cm)LA (MM) (1.9-4.0cm)Aortic Cusp Exc1.5 (1.5-2.0cm) EF (%) 60.0 (55-70%)Rt. Atrium3.2 (1.9-4.0cm)Asc. Aorta cm IVSd1.2 (0.7-1.1cm)RV (D) (1.8-2.4cm) PWd1.2 (0.7-1.1cm) Mitral Valve MitralMitral Stenosis E wave0.85m/sMV Mean GR.mmHg A wave1.30m/sMV Peak GR.mmHg E/A ratio0.72D MVAcm2 DECEL [id number] 1/2 Timems Aortic Valve Aortic ValveAortic Stenosis V11.02m/Isabel Mean GR.5mmHg V21.37m/Isabel Peak GR.8mmHg LVOT Diameter1.8 (1.8-2.4cm)Doppler AVA1.89cm2 Pulmonic Valve V21.02m/s Tricuspid Valve TR Velocity2.79m/s [id number] Other Information Technically limited study due to body habitus. Conclusion Normal left ventricular size and dimension. Normal left ventricular systolic function estimated ejec tion fraction 55%. There is a grade 1 diastolic dysfunction. Normal right ventricular size and dimension. Normal right ventricular systolic function. Slightly i ncreased right ventricular systolic pressure 34 mm of mercury. Normal biatrial size and dimension. Normal aortic valve structure and function. Normal mitral valve structure and function. Normal tricuspid valve structure and the pulmonary valve is grossly normal No pericardial effusion.
--- NOTE | 2024-01-11 16:53 | DVH ---
EXAM: US Duplex Bilateral Extracranial Arteries CLINICAL INDICATION: syncope TECHNIQUE: Real-time duplex ultrasound scan of the extracranial arteries integrating B-mode two-dime nsional vascular structure, Doppler spectral analysis and color flow Doppler imaging. COMPARISON: None FINDINGS: RIGHT COMMON CAROTID ARTERY: Unremarkable. No occlusion or significant stenosis on color flow and s pectral Doppler imaging. Peak systolic velocity in the right common carotid artery (CCA) is 93 cm/s. RIGHT INTERNAL CAROTID ARTERY: Unremarkable. No occlusion or significant stenosis on color flow and spectral Doppler imaging. Peak systolic velocity in the right internal carotid artery (ICA) is 119 cm/s. RIGHT EXTERNAL CAROTID ARTERY: Unremarkable. No occlusion or significant stenosis on color flow and spectral Doppler imaging. Peak systolic velocity in the right external carotid artery (ECA) is 108 cm/s. RIGHT VERTEBRAL ARTERY: Antegrade flow in the right vertebral artery. RIGHT ICA/CCA RATIO: Unremarkable. The ICA/CCA peak systolic velocity ratio is 1.3 on the right. LEFT COMMON CAROTID ARTERY: Unremarkable. No occlusion or significant stenosis on color flow and sp ectral Doppler imaging. Peak systolic velocity in the left common carotid artery (CCA) is 82 cm/s. LEFT INTERNAL CAROTID ARTERY: Unremarkable. No occlusion or significant stenosis on color flow and spectral Doppler imaging. Peak systolic velocity in the left internal carotid artery (ICA) is 112 cm /s. LEFT EXTERNAL CAROTID ARTERY: Unremarkable. No occlusion or significant stenosis on color flow and spectral Doppler imaging. LEFT VERTEBRAL ARTERY: Antegrade flow in the left vertebral artery. LEFT ICA/CCA RATIO: Unremarkable. The ICA/CCA peak systolic velocity ratio is 1.4 on the left. LYMPH NODES: Unremarkable. No lymphadenopathy. OTHER FINDINGS: . . CAROTID STENOSIS REFERENCE USING SRU CRITERIA: Mild - <50% stenosis. ICA PSV is less than 125 cm/second and plaque or intimal thickening is visible. Moderate - 50-69% stenosis. ICA PSV is 125 to 230 cm/second and plaque is visible. Severe - 70-94% stenosis. ICA PSV is more than 230 cm/second and visible plaque with lumen narrowing is seen. Near occlusion - 95-99% stenosis. ICA PSV is variable and significant plaque with luminal narrowing i s seen. Occluded - 100% stenosis. No flow identified. IMPRESSION: No acute findings in the arteries of the neck. HS:Y
[2024-01-11] MEDS ORDERED: WARFARIN SODIUM 2 MG TAB PO ONE (17:00)
--- NOTE | 2024-01-11 17:32 | DVH ---
EXAM: XY R HAND 3 VIEW XRAY CLINICAL HISTORY: fall COMPARISON: XY R SHOULDER 2+ VIEW XRAY on DOS: 01/10/24, XY R RIB XRAY on DOS: 01/10/24 TECHNIQUE: XY R HAND 3 VIEW XRAY Findings/Impression: 3 views of the right hand. Nondisplaced oblique fracture of the distal fifth metacarpal. Mild soft tissue edema. There is no evidence of dislocation, blastic, or lytic lesions. No radiopaque foreign bodies. Osteopenia.
--- NOTE | 2024-01-11 17:36 | DVH ---
PROCEDURE: MRI BRAIN HEAD WO CONTRAST INDICATION: Syncope EXAM DATE: 01/11/2024 04:32 PM COMPARISON: CT HEAD WITHOUT CONTRAST on DOS: 01/10/24 TECHNIQUE: MRI brain without intravenous contrast. FINDINGS: Diffusion weighted images of the brain demonstrate no evidence of acute infarction. There is no evid ence of intracranial hemorrhage, extra-axial collection, mass effect, midline shift, herniation or hy drocephalus. The ventricles, sulci, and cisterns appear otherwise age appropriate. There are moderate changes of chronic microvascular ischemic disease. There is an old lacunar infarct in the ri ght basal ganglia. There are no signal abnormalities on the susceptibility weighted sequences. The major vascular flow voids are present. The visualized paranasal sinuses and mastoid air cells are clear. The surrounding soft tissues and osseous structures are otherwise unremarkable. IMPRESSION: 1. No evidence of acute infarction, intracranial hemorrhage, mass lesion or hydrocephalus. Moderate c hanges of chronic microvascular ischemic disease. Old lacunar infarct in the right basal ganglia. HS:Y
[2024-01-11] MEDS: APIXABAN 2.5 MG TAB PO SCH (21:21)
[2024-01-11] MEDS ORDERED: hydrALAZINE HCL 25 MG TAB PO SCH (22:00)
--- NOTE | 2024-01-11 22:37 | DVHINCON2 ---
Date of service: Jan 11, [address] Marin Reason for Consultation Syncope History of Present Illness Ms. Bañuelos is an 78 years old right-handed female with a history of hypertension, diabetes, AFib on Coumadin, the patient came to the [facility] on 01/10/2024 with a chief company of fall injury. At this time, she is alert and fully oriented, she provided following history Around 3:15AM on 01/06/2024, she woke, and walking inside the house, and the next memory was falling down and the face heating the floor, she does not remember any warning symptoms such as dizziness, or tripping onto anything, on waking up, her mind was consciousness everything, with blood coming out from the nose. She was lot of pain in the teeth and face, she was has severe right shoul saud and rib pain, The patient was never had similar problem before, she denies history of stroke, seizure disorder or syncope. Urinalysis, 01/10/2024: WBC: 58, urine leukocyte esterase: 2+ WBC/HB/PLT/MCV, 01/11/2024: 447/14.1/249/99.8 PT/INR/PTT, 01/11/2024: 17.9/1.76/31.6 BUN/CR, 01/11/2024: 42/2.01 Liver function tests, 01/11/2024: Unremarkable HGB A1c, 01/11/2024, 12.5 Glucose, 01/10/2024: 452, 451, 01/11/2024: 464 Carotid Doppler, 01/11/2024: No acute findings in the arteries of the neck. X-ray, left shoulder, 01/11/2024: Nondisplaced oblique fracture of the distal fifth metacarpal. Mild soft tissue edema. There is no evidence of dislocation, blastic, or lytic lesions. No radiopaque foreign bodies. Osteopenia. MRI head, 01/11/2024: No evidence of acute infarction, intracranial hemorrhage, mass lesion or hydrocephalus. Moderate changes of chronic microvascular ischemic disease. Old lacunar infarct in the right basal ganglia Past Medical History Hypertension, diabetes, atrial fibrillation Past Surgical History Appendectomy, hysterectomy, bilateral carpal tunnel release, right knee replacement Family History: FH: heart attack G8 MOTHER FH: kidney disease G8 FATHER FH: stroke G8 MOTHER Ischemic heart disease G8 FATHER Family History Coronary artery disease, heart attack, stroke, chronic kidney disease, breast cancer Social History She has not tobacco smoker, no history of alcohol or recreational substance abuse Allergies: Coded Allergies: Codeine (Unverified Allergy, Severe, 01/23/14) Sulfa Antibiotics (Unverified Allergy, Severe, 01/23/14) Home Meds Active Scripts Ferrous Sulfate (FERROUS SULFATE) 325 Mg Tb, 325 MG PO TIDWM, #100 BOTTLE Prov:HSERLYN ARCE MD 11/01/14 Reported Medications Semaglutide (Ozempic) 2 Mg/3 Ml Inj, 2 MG SC, INJ 01/11/24 Insulin Glargine (Lantus) 100 Unit/Ml Inj, 100 UNIT SC, INJ 01/11/24 Hydralazine Hcl (Hydralazine Hcl) 25 Mg Tab, 25 MG PO for 30 Days, MG 01/11/24 Ezetimibe (Zetia) 10 Mg Tab, 10 MG PO, TAB 01/11/24 Allopurinol (Allopurinol) 100 Mg Tab, 100 MG PO DAILY for 30 Days, MG 01/11/24 Tramadol Hcl (Tramadol Hcl) 50 Mg Tab, 50 MG PO Q6HP PRN for PAIN SCALE 1 THRU 6, MG 01/11/24 Atorvastatin Calcium (ATORVASTATIN CALCIUM) 80 Mg Tab, 80 MG PO DAILY, TAB 01/11/24 Furosemide (Furosemide) 40 Mg Tab, 40 MG PO, TAB 01/11/24 Trazodone Hcl (Trazodone Hcl) 50 Mg Tab, 50 MG PO, MG 01/11/24 Duloxetine Hcl (Cymbalta) 60 Mg Cap, 60 MG PO, CAP 01/11/24 Torsemide (Torsemide) 10 Mg Tab, 10 MG PO, TAB 01/11/24 Potassium Chloride (Potassium Chloride ER) 10 Meq Tab, 1 TAB PO BID 01/10/24 Warfarin Sodium (Warfarin Sodium) 2 Mg Tab, 1 TAB PO DAILY 01/10/24 Budesonide-Formoterol Fumarate (Symbicort) 1 Aer Aer, 2 PUFF INH BID, #10.6 GRAMS 3 Refills 10/28/14 Montelukast Sodium (Singulair) 10 Mg Tab, 500 MG PO DAILY, TAB 10/28/14 Montelukast Sodium (Singulair) 5 Mg Chw, 5 MG PO, CHW 10/28/14 Simvastatin (Simvastatin) 20 Mg Tab, 20 MG PO DAILY, TAB 10/28/14 Metoprolol Succinate (Metoprolol Succinate Er) 25 Mg Tab, 25 MG PO DAILY, TAB 10/28/14 Imiquimod (Imiquimod) 5 % Cre, 5 % EX, CRE 10/28/14 Discontinued Reported Medications Warfarin Sodium (Warfarin Sodium) 2.5 Mg Tab, 2.5 MG PO DAILY, TAB 10/28/14 Losartan Potassium (Losartan Potassium) 50 Mg Tab, 60 MG PO DAILY, TAB 10/28/14 Fenofibrate (Fenofibrate) 160 Mg Tab, 145 MG PO DAILY, TAB 10/28/14 Metformin Hydrochloride (Metformin Hcl) 500 Mg Tab, 500 MG PO BID, TAB 10/28/14 Duloxetine Hcl (Cymbalta) 60 Mg Cap, 60 MG PO DAILY, CAP 10/28/14 Current Medications Current Medications Medications (Trade) Dose Ordered Sig/Jennifer Route PRN Reason Start Time Stop Time Status Last Admin Furosemide (Lasix Tablet) 40 mg BIDD PO 01/11/24 18:00 01/11/24 16:17 Hydralazine HCl (Apresoline Tablet) 25 mg Q12HR PO 01/11/24 22:00 01/11/24 11:43 DC Metoprolol Succinate (Toprol Xl) 50 mg DAILY PO 01/12/24 10:00 Acetaminophen/ Hydrocodone Bitart ([place] 5/325MG Tab) 1 tab Q4HPRN PRN PO MODERATE PAIN (4-6 PAIN SCALE) 01/11/24 12:15 01/11/24 19:50 Apixaban (Eliquis) 2.5 mg BID PO 01/11/24 22:00 01/11/24 21:21 Review of Systems As above, the other systems are negative Vital Signs Vital Signs Date Time Temp Pulse Resp B/P (MAP) Pulse Ox O2 Delivery O2 Flow Rate FiO2 01/11/24 21:45 81 17 146/70 01/11/24 21:00 97.9 94 97.9 01/11/24 08:00 Room Air* 0 21 Physical Exam GENERAL EXAM: General: the patient is well developed and nourished. No acute distress. HEENT: Normocephalic, neck is supple, no carotid bruits RESPIRATORY: Normal respiratory effort with symmetrical lung expansion. Lungs clear to auscultation. CARDIOVASCULAR: Regular rate and rhythm with no murmurs. S1, S2. ABDOMEN: Soft, nontender, normal bowel sound NEUROLOGICAL: MENTAL STATUS: Awake and alert. Oriented to person, place, time and general circumstances. Able to give personal history SPEECH, LANGUAGE, HIGHER CORTICAL FUNCTION: no aphasia or dysathria. CRANIAL NERVES: #2: Intact visual parmar to confrontation. The optic discs were sharp. #3,4,6: Pupils are equal, round and reactive. EOMs full and conjugate. No nystagmus. #5: Facial sensation intact in all three divisions bilaterally. Mandibular strength intact. #7: Facial muscles symmetrical and strength intact. #8: Hearing grossly normal to voice. #9,10: Uvula and soft palate rise in the midline. Swallow and voice are normal. #11: Trapezius and sternomastoid strength intact bilaterally. #12: Tongue midline. No fasciculations or atrophy. SENSATION: Sensation to touch and pinprick is normal. MOTOR: Normal tone in the upper and lower extremity. Normal muscle bulk. No fasciculations. No abnormal movements or posturing. Muscle strength of the major groups in the upper extremities is 5/5. Muscle strength of the major groups in the lower extremities is 5/5. REFLEXES: Deep tendon reflexes are symmetrical. No pathological reflexes. CEREBELLAR/COORDINATION: Finger to nose is normal bilaterally. GAIT/STATION: deferred. Labs/Diagnostic Data Labs Test 01/11/24 20:27 01/11/24 14:07 01/11/24 06:01 01/10/24 18:22 Range/Units POC Glucose 307 H 70-106 mg/dl Urine Creatinine 73.12 30.0-125.0 mg/dL Urine Protein/Creatinine Ratio 0.69 Urine Sodium 11 L 40-220 mmol/L Urine Total Protein 50.8 H 1-14 mg/dL White Blood Count 14.7 H 4.4-10.8 10^3/uL Red Blood Count 4.14 4.0-5.20 10^6/uL Hemoglobin 14.1 12.2-16.2 g/dL Hematocrit 41.3 36.0-46.0 % Mean Corpuscular Volume 99.8 80.0-100.0 fL Mean Corpuscular Hemoglobin 34.0 H 28.0-32.0 pg Mean Corpuscular Hemoglobin Concent 34.0 32.0-36.0 g/dL Red Cell Distribution Width 14.7 H 11.8-14.3 % Platelet Count 249 140-450 10^3/uL Mean Platelet Volume 9.6 6.9-10.8 fL Neutrophils (%) (Auto) 77.0 37.0-80.0 % Lymphocytes (%) (Auto) 17.0 10.0-50.0 % Monocytes (%) (Auto) 5.5 0.0-12.0 % Eosinophils (%) (Auto) 0.1 0.0-7.0 % Basophils (%) (Auto) 0.4 0.0-2.0 % Neutrophils # (Auto) 11.3 H 1.6-8.6 10 ^3/uL Lymphocytes # (Auto) 2.5 0.4-5.4 10 ^3/uL Monocytes # (Auto) 0.8 0-1.3 10 ^3/uL Eosinophils # (Auto) 0 0-0.8 10 ^3/uL Basophils # (Auto) 0.1 0-0.2 10 ^3/uL Nucleated Red Blood Cells 0.0 % Prothrombin Time 17.9 H 9.3-11.8 sec Prothrombin Time INR 1.76 H 0.9-1.15 Activated Partial Thromboplast Time 31.6 24.5-34.5 SEC Sodium Level 137 # 136-145 mmol/L Potassium Level 3.8 3.5-5.1 mmol/L Chloride Level 106 # 98-107 mmol/L Carbon Dioxide Level 24 20-31 mmol/L Anion Gap 7 5-15 Blood Urea Nitrogen 42 H 9-23 mg/dL Creatinine 2.01 H 0.550-1.02 mg/dL Glomerular Filtration Rate Calc 25 >90 mL/min BUN/Creatinine Ratio 20.9 H 10.0-20.0 Serum Glucose 137 H 74-106 mg/dL Hemoglobin A1c 12.5 H <5.7 % A1C Calcium Level 9.6 8.7-10.4 mg/dL Phosphorus Level 5.1 2.4-5.1 mg/dL Total Bilirubin 0.9 0.2-1.0 mg/dL Aspartate Amino Transferase (AST) 26 13-40 U/L Alanine Aminotransferase (ALT) 40 7-40 U/L Alkaline Phosphatase 167 H 46-116 U/L Total Protein 6.5 5.7-8.2 g/dL Albumin 3.9 3.2-4.8 g/dL Parathyroid Hormone (Intact) 171.6 H 18.4-80.1 pg/mL Urine Color Colorless Yellow Urine Clarity Clear Clear Urine pH 5.0 5.0-9.0 Urine Specific [place] 1.023 1.001-1.035 Urine Protein Negative Negative Urine Ketones Negative Negative Urine Blood Negative Negative /uL Urine Nitrite Negative Negative Urine Bilirubin Negative Negative Urine Urobilinogen Normal Negative mg/dL Urine Leukocyte Esterase 2+ Negative /uL Urine RBC 6 0 - 4 /hpf Urine WBC 58 0 - 5 /hpf Urine Squamous Epithelial Cells Few <5 /hpf Urine Bacteria Few H None Seen /hpf Urine Yeast (Budding) Occasional None Seen /hpf Urine Glucose 4+ H Normal mg/dL Test 01/10/24 13:13 Range/Units Troponin I High Sensitivity 12 </=34 ng/L Beta-Hydroxybutyric Acid 0.482 H < 0.4 mmol/L Microbiology Date/Time Source Procedure Growth Status 01/10/24 18:22 Voided Urine Urine Culture - Preliminary Resulted Assessment Fall injury with amnesia, ? Syncope, ? Partial simple seizure Finger fracture Uncontrolled diabetes Plan/Recommendation Monitoring Supportive treatment Telemetry EEG Syncope precautions discussed Progress: Poor This medical document was created using an electronic medical record system with [employer] dictation system. Although this document has been carefully reviewed, there may still be some phonetic and typographical errors. These areas are purely typographical due to imperfections of the software programs, and do not reflect any compromise in the patient's medical care. Plan discussed with: Patient, Other BONNY LUGO MD Jan 11, 2024 22:37
[2024-01-12] VITALS (8 sets, daily range): BP systolic 111–133; BP diastolic 50–75; PULSE 75–87; RESP 18–20; TEMP 97.7–98.4; O2SAT 92–97
[2024-01-12 06:06] LABS: Basophils # (auto) 0 10 ^3/uL (0-0.2); Basophils % (auto) 0.4 % (0.0-2.0); Eosinophils # (auto) 0.2 10 ^3/uL (0-0.8); Eosinophils % (auto) 1.4 % (0.0-7.0); Hematocrit 44.2 % (36.0-46.0); Hemoglobin 14.6 g/dL (12.2-16.2); Lymphocytes # (auto) 2.9 10 ^3/uL (0.4-5.4); Lymphocytes % (auto) 25.1 % (10.0-50.0); Mean Corpuscular Hemoglobin 33.8 pg (28.0-32.0); Mean Corpuscular Volume 102.5 fL (80.0-100.0); Monocytes # (auto) 0.7 10 ^3/uL (0-1.3); Neutrophils # (auto) 7.7 10 ^3/uL (1.6-8.6); Neutrophils % (auto) 67.1 % (37.0-80.0); Platelet Count (auto) 249 10^3/uL (140-450); Red Blood Cells 4.32 10^6/uL (4.0-5.20); Red Cell Distribution Width 14.8 % (11.8-14.3); White Blood Cell 11.5 10^3/uL (4.4-10.8)
[2024-01-12 06:18] LABS: Chloride 106 mmol/L (98-107); Potassium 3.8 mmol/L (3.5-5.1); Sodium 139 mmol/L (136-145)
[2024-01-12 06:19] LABS: Anion Gap 8 (5-15); Calcium 9.2 mg/dL (8.7-10.4); Carbon Dioxide 25 mmol/L (20-31)
[2024-01-12 06:21] LABS: INR 2.46 (0.9-1.15); Prothrombin Time 24.4 sec (9.3-11.8)
[2024-01-12 06:24] LABS: BUN/Creatinine Ratio 22.1 (10.0-20.0); Blood Urea Nitrogen 45 mg/dL (9-23); Glucose 202 mg/dL (74-106)
[2024-01-12 06:26] LABS: Creatine Kinase IFCC 54 U/L (34-145)
[2024-01-12] MEDS: METOPROLOL SUCCINATE XL 50 MG TAB PO SCH (08:41)
[2024-01-12 09:15] LABS: Hepatitis B Surface Antigen Negative (Negative)
[2024-01-12 09:36] LABS: Hepatitis C Antibody Negative (Negative)
--- NOTE | 2024-01-12 10:26 | DVHPN2 ---
Progress Note - Dictate Date Seen: Jan 12, 2024 Medical Necessity Reason Pt with a Central, PICC or Fol: No Subjective Ms. Bañuelos is an 78 years old right-handed female with a history of hypertension, diabetes, AFib on Coumadin, the patient came to the [facility] on 01/10/2024 with a chief company of fall injury. I have seen and examined the patient, I have discussed with her nurse, the patient is doing fine, alert and fully oriented, and she confirmed all the history she gave me yesterday She walked to bathroom earlier today with no problems Urinalysis, 01/10/2024: WBC: 58, urine leukocyte esterase: 2+ WBC/HB/PLT/MCV, 01/11/2024: 447/14.1/249/99.8 PT/INR/PTT, 01/11/2024: 17.9/1.76/31.6 BUN/CR, 01/11/2024: 42/2.01 Liver function tests, 01/11/2024: Unremarkable HGB A1c, 01/11/2024, 12.5 Glucose, 01/10/2024: 452, 451, 01/11/2024: 464 Carotid Doppler, 01/11/2024: No acute findings in the arteries of the neck. X-ray, left shoulder, 01/11/2024: Nondisplaced oblique fracture of the distal fifth metacarpal. Mild soft tissue edema. There is no evidence of dislocation, blastic, or lytic lesions. No radiopaque foreign bodies. Osteopenia. MRI head, 01/11/2024: No evidence of acute infarction, intracranial hemorrhage, mass lesion or hydrocephalus. Moderate changes of chronic microvascular ischemic disease. Old lacunar infarct in the right basal ganglia vital signs Vital Sign Date Time Temp Pulse Resp B/P (MAP) Pulse Ox O2 Delivery O2 Flow Rate FiO2 01/12/24 08:41 84 112/68 01/12/24 08:33 98.1 18 92 98.1 01/12/24 08:00 Nasal Cannula* 3 32 Total Intake and Output 01/11/24 01/11/24 01/12/24 15:00 23:00 07:00 Intake Total 50 ml 315 ml 500 ml Balance 50 ml 315 ml 500 ml medications Current Medications Medications Dose Ordered Sig/Jennifer Route Start Time Stop Time Status Last Admin Dose Admin Clonidine HCl 0.1 mg Q4HP PRN PO 01/10/24 19:15 Ceftriaxone Sodium 50 ml @ 100 mls/hr DAILY@09 IV 01/10/24 19:22 01/12/24 08:42 100 MLS/HR Diagnostic Test (Pha) 1 strip IQ4HR 01/10/24 20:00 01/12/24 08:42 1 STRIP Insulin Human Regular IQ4HR SC 01/10/24 20:00 01/12/24 08:58 8 UNITS Dextrose 50 ml UD PRN IV 01/10/24 19:15 Ondansetron HCl 4 mg Q4HP PRN IV 01/10/24 19:15 Docusate Sodium 100 mg BIDPRN PRN PO 01/10/24 19:15 Acetaminophen 650 mg Q6HP PRN PO 01/10/24 19:15 01/11/24 00:15 650 MG Morphine Sulfate 2 mg Q4HPRN PRN IV 01/10/24 19:15 01/12/24 05:45 2 MG Nitroglycerin 0.4 mg Q5MINP PRN SL 01/10/24 19:15 Morphine Sulfate 2 mg Q30M PRN IV 01/10/24 19:15 Furosemide 40 mg BIDD PO 01/11/24 18:00 01/12/24 05:35 40 MG Metoprolol Succinate 50 mg DAILY PO 01/12/24 10:00 01/12/24 08:41 50 MG Acetaminophen/ Hydrocodone Bitart 1 tab Q4HPRN PRN PO 01/11/24 12:15 01/12/24 04:05 1 TAB Apixaban 2.5 mg BID PO 01/11/24 22:00 01/12/24 08:41 2.5 MG objective General: the patient is well developed and nourished. No acute distress. MENTAL STATUS: Awake and alert. Oriented to person, place, time and general circumstances. Able to give personal history SPEECH, LANGUAGE, HIGHER CORTICAL FUNCTION: no aphasia or dysathria. CRANIAL NERVES: Pupils are equal, round and reactive. EOMs full and conjugate. No nystagmus. Facial sensation intact in all three divisions bilaterally. Mandibular strength intact. Facial muscles symmetrical and strength intact. SENSATION: Sensation to touch and pinprick is normal. MOTOR: Normal tone in the upper and lower extremity. Normal muscle bulk. No fasciculations. No abnormal movements or posturing. Muscle strength of the major groups in the extremities is 5/5. REFLEXES: Deep tendon reflexes are symmetrical. No pathological reflexes. CEREBELLAR/COORDINATION: Finger to nose is normal bilaterally. GAIT/STATION: deferred. laboratory and microbiology Laboratory Tests 01/12/24 05:30 Test 01/12/24 05:30 Range/Units Serum Glucose 202 H 74-106 mg/dL Problem List Fall injury with amnesia, ? Syncope, ? Partial simple seizure Finger fracture Uncontrolled diabetes Assessment/Plan Monitoring Supportive treatment Telemetry EEG Syncope precautions discussed This medical document was created using an electronic medical record system with [employer] dictation system. Although this document has been carefully reviewed, there may still be some phonetic and typographical errors. These areas are purely typographical due to imperfections of the software programs, and do not reflect any compromise in the patient's medical care. Prognosis poor Plan discussed with: Patient, Other BONNY LUGO MD Jan 12, 2024 10:26
--- NOTE | 2024-01-12 10:44 | DVHPN2 ---
Subjective Complains of right ribcage pain with cough Complains of right hand pain X-ray of the right hand show fracture of the distal 5th metacarpal, nondisplaced Changes from previous H/P or p: Changes Eyes: No Pain, No Vision change, No Conjunctivae inflammation, No Eyelid inflammation, No Other, No Redness ENT: No Ear pain, No Ear discharge, No Nose pain, No Nose discharge, No Nose congestion, No Mouth pain, No Mouth swelling, No Throat pain, No Throat swelling, No Other Cardiovascular: No Chest Pain, No Palpitations, No Orthopnea, No Paroxysmal Noc. Dyspnea, No Edema, No Lt Headedness, No Other Respiratory: No Cough, No Dry, No Shortness of breath, No SOB with excertion, No Wheezing, No Hemoptysis, No Pleuritic Pain, No Sputum, No Other Gastrointestinal: No Nausea, No Vomiting, No Abdominal Pain, No Diarrhea, No Constipation, No Melena, No Hematochezia, No Other Genitourinary: No Dysuria, No Frequency, No Incontinence, No Hematuria, No Retention, No Other Musculoskeletal: other (Right rib pain); No neck pain; shoulder pain (Right ); No arm pain, No back pain, No hand pain, No leg pain, No foot pain Skin: No Rash, No Lesions, No Jaundice, No Bruising, No Other Objective Vitals Vital Signs Date Time Temp Pulse Resp B/P (MAP) Pulse Ox O2 Delivery O2 Flow Rate FiO2 01/12/24 08:41 84 112/68 01/12/24 08:33 98.1 18 92 98.1 01/12/24 08:00 Nasal Cannula* 3 32 Intake/Output Intake and Output 01/12/24 07:00 Intake Total 865 ml Balance 865 ml Intake Oral 815 ml IV Total 50 ml # Voids 6 # Bowel Movements 1 General Appearance: Alert, Oriented X3, Cooperative, No acute distress Lungs: Clear to auscultation, Normal air movement Cardiovascular: Regular rate, Normal S1, Normal S2 Abdomen: Normal bowel sounds, Soft, No tenderness Extremities: No edema Medications Current Medications Medications Dose Ordered Sig/Jennifer Route Start Time Stop Time Status Last Admin Dose Admin Clonidine HCl 0.1 mg Q4HP PRN PO 01/10/24 19:15 Ceftriaxone Sodium 50 ml @ 100 mls/hr DAILY@09 IV 01/10/24 19:22 01/12/24 08:42 100 MLS/HR Diagnostic Test (Pha) 1 strip IQ4HR 01/10/24 20:00 01/12/24 08:42 1 STRIP Insulin Human Regular IQ4HR SC 01/10/24 20:00 01/12/24 08:58 8 UNITS Dextrose 50 ml UD PRN IV 01/10/24 19:15 Ondansetron HCl 4 mg Q4HP PRN IV 01/10/24 19:15 Docusate Sodium 100 mg BIDPRN PRN PO 01/10/24 19:15 Acetaminophen 650 mg Q6HP PRN PO 01/10/24 19:15 01/11/24 00:15 650 MG Morphine Sulfate 2 mg Q4HPRN PRN IV 01/10/24 19:15 01/12/24 05:45 2 MG Nitroglycerin 0.4 mg Q5MINP PRN SL 01/10/24 19:15 Morphine Sulfate 2 mg Q30M PRN IV 01/10/24 19:15 Furosemide 40 mg BIDD PO 01/11/24 18:00 01/12/24 05:35 40 MG Metoprolol Succinate 50 mg DAILY PO 01/12/24 10:00 01/12/24 08:41 50 MG Acetaminophen/ Hydrocodone Bitart 1 tab Q4HPRN PRN PO 01/11/24 12:15 01/12/24 04:05 1 TAB Apixaban 2.5 mg BID PO 01/11/24 22:00 01/12/24 08:41 2.5 MG Laboratory Results Laboratory Tests 01/12/24 05:30 Chemistry Test 01/12/24 05:30 Calcium Level 9.2 mg/dL (8.7-10.4) Coagulation Test 01/12/24 05:30 Prothrombin Time 24.4 sec (9.3-11.8) H Prothrombin Time INR 2.46 (0.9-1.15) H Urinalysis Test 01/10/24 18:22 01/11/24 14:07 Urine Color Colorless (Yellow) Urine Clarity Clear (Clear) Urine pH 5.0 (5.0-9.0) Urine Specific [place] 1.023 (1.001-1.035) Urine Protein Negative (Negative) Urine Ketones Negative (Negative) Urine Blood Negative /uL (Negative) Urine Nitrite Negative (Negative) Urine Bilirubin Negative (Negative) Urine Urobilinogen Normal mg/dL (Negative) Urine Leukocyte Esterase 2+ /uL (Negative) Urine RBC 6 /hpf (0 - 4) Urine WBC 58 /hpf (0 - 5) Urine Squamous Epithelial Cells Few /hpf (<5) Urine Bacteria Few /hpf (None Seen) H Urine Yeast (Budding) Occasional /hpf (None Urine Glucose 4+ mg/dL (Normal) H Urine Creatinine 73.12 mg/dL (30.0-125.0) Urine Protein/Creatinine Ratio 0.69 Urine Sodium 11 mmol/L (40-220) L Urine Total Protein 50.8 mg/dL (1-14) H Microbiology Microbiology Date/Time Source Procedure Growth Status 01/10/24 18:22 Voided Urine Urine Culture - Preliminary Resulted Assessment/Plan Assessment/Plan Fall Right hand nondisplaced fracture of the distal 5th metacarpal Syncope CKD h/o CHF Paroxysmal afib on Coumadin h/o DVT and PE HTN PLAN: 01/11/2024: X-Rays R hand MRI brain Carotid US Echo Nephrology Neurology Cardiology Switch Coumadin to Eliquis 01/12/2024: X-ray of the hand shows fracture of the distal 5th metacarpal Apply an Reid wrap to the right hand Physical therapy Pain control Discharge planning for tomorrow Plan discussed with: Patient My Orders Orders - ANTHONY REYES MD Procedure Category Date Status Time R Hand 3 View Xray XY 01/11/24 Resulted 16:00 Carotid Duplx W Color US 01/11/24 Resulted DOP 16:00 Brain Head Wo Contrast MRI 01/11/24 Resulted 16:00 *Consult Dr. Alves CONS 01/11/24 Transmitted Jarrett 16:01 * Cardiology Consult CONS 01/11/24 Transmitted 16:05 Apixaban (Eliquis) PHA 01/11/24 In Process 22:00 Date of Service: Jan 12, 2024 Billing Provider: ANTHONY REYES MD Common Visit Codes: NOT BILLABLE ANTHONY REYES MD Jan 12, 2024 10:44
[2024-01-12] MEDS ORDERED: DEXTROSE (50%) 50ML SYRG IV PRN (10:45)
[2024-01-12] MEDS: ONDANSETRON HCL 4 MG/2 ML VIAL IV PRN (11:31)
[2024-01-12] MEDS: InsuLIN REG 1unit/0.01ml Soln (100units/ml) SC SCH (11:59)
[2024-01-12] MEDS: ACCU-CHEK COMFORT CURVE STRIP VI SCH (11:59)
--- NOTE | 2024-01-12 12:00 | DVHPN2 ---
Progress Note Date Seen: Jan 12, 2024 Resident Creating Document: HECTOR MURRAYRENDRAKE RESIDENT Medical Necessity Reason Pt with a Central, PICC or Fol: No Subjective Review of Systems Patient is a 78-year-old female with a past medical history of type 2 diabetes mellitus, hypertension, congestive heart failure, CKD stage 3, COPD, paroxysmal atrial fibrillation came the ED with a chief complaint of right shoulder and right chest pain following a history of fall. Patient reported that she fell in her apartment and hit her head on Tuesday last week following which she started having pain in the right showed in the right side chest. Pain gradually worsened which prompted her to come to the hospital for further evaluation. Patient reported that her blood pressures had been on the higher side in the 180-190 SBP and her blood sugar levels were increased at home greater than 350 mg/dL which was the highest reading on the glucometer. Head CT did not show any acute intracranial process, chest x-ray shows no acute cardiopulmonary disease, no acute rib fractures. Shoulder x-rays shows no acute fracture or dislocation. Renal ultrasound shows right kidney 8 cm in length, left kidney 8.3 cm in length, echogenic renal parenchyma with thin renal cortex likely related to medical renal disease. Past Medical History;type 2 diabetes mellitus, hypertension, congestive heart failure, CKD stage 3, COPD, paroxysmal atrial fibrillation, history of skin cancer Past Surgical History;None reported Social History:Lives with family denies smoking, alcohol, drug use Review of Systems Patient seen and examined at the bedside. Patient is alert and oriented to time, place and person. Patient reported moderate right shoulder and right chest pain with tenderness to touch. Patient reports mild shortness of breath on moving around but feels better with the oxygen support on 2 L per minute oxygen via nasal cannula. Patient denied chest pain, dizziness, abdominal pain, nausea, vomiting. Patient's blood pressure 112/68 mmHg, heart rate 84 per minute, respiratory rate 18 per minute, SpO2 93% on 2 L/min oxygen. Objective vital signs Vital Sign Date Time Temp Pulse Resp B/P (MAP) Pulse Ox O2 Delivery O2 Flow Rate FiO2 01/12/24 08:41 84 112/68 01/12/24 08:33 98.1 18 92 98.1 01/12/24 08:00 Nasal Cannula* 3 32 Total Intake and Output 01/11/24 01/11/24 01/12/24 15:00 23:00 07:00 Intake Total 50 ml 315 ml 500 ml Balance 50 ml 315 ml 500 ml medications Current Medications Medications Dose Ordered Sig/Jennifer Route Start Time Stop Time Status Last Admin Dose Admin Clonidine HCl 0.1 mg Q4HP PRN PO 01/10/24 19:15 Ondansetron HCl 4 mg Q4HP PRN IV 01/10/24 19:15 01/12/24 11:31 4 MG Docusate Sodium 100 mg BIDPRN PRN PO 01/10/24 19:15 Acetaminophen 650 mg Q6HP PRN PO 01/10/24 19:15 01/11/24 00:15 650 MG Morphine Sulfate 2 mg Q4HPRN PRN IV 01/10/24 19:15 01/12/24 05:45 2 MG Nitroglycerin 0.4 mg Q5MINP PRN SL 01/10/24 19:15 Morphine Sulfate 2 mg Q30M PRN IV 01/10/24 19:15 Metoprolol Succinate 50 mg DAILY PO 01/12/24 10:00 01/12/24 08:41 50 MG Acetaminophen/ Hydrocodone Bitart 1 tab Q4HPRN PRN PO 01/11/24 12:15 01/12/24 04:05 1 TAB Apixaban 2.5 mg BID PO 01/11/24 22:00 01/12/24 08:41 2.5 MG Diagnostic Test (Pha) 1 strip ACHS 01/12/24 11:30 01/12/24 11:59 1 STRIP Insulin Human Regular ACHS SC 01/12/24 11:30 01/12/24 11:59 3 UNITS Dextrose 50 ml UD PRN IV 01/12/24 10:45 Cephalexin 500 mg BID PO 01/12/24 22:00 Furosemide 40 mg BIDD IV 01/12/24 18:00 Examination Physical Examination Gen - no pallor, no icterus, no cyanosis, no clubbing, no LAD, 1+ bilateral pedal edema . Skin - Patients skin is warm and dry. HEENT - normocephalic, atraumatic, moist mucous membranes. Neck - full ROM, no LAD, no JVD Pulmonary - B/L vesicular breath sounds with bibasilar coarse crackles, no wheezing, no stridor. cardiovascular - normal S1,S2 heard. no murmurs heard. peripheral pulses normal radial 2+, pedal 2+. capillary refill normal <2 secs. GI - soft abdomen without tenderness to palpation . no hepatospleenomegaly. Bowel sounds + Neurological - Patient is A/O X 3 . Bilateral upper extremity strength 5/5, bilateral lower extremity strength 5/5, no facial droop, normal speech, no tremor, no sensory deficiets. laboratory and microbiology Laboratory Tests 01/12/24 05:30 Test 01/12/24 05:30 Range/Units Serum Glucose 202 H 74-106 mg/dL Microbiology Date/Time Source Procedure Growth Status 01/10/24 18:22 Voided Urine Urine Culture - Preliminary Resulted Problem List/Assessment/Plan Problem List/Assessment/Plan Assessment and plan # RAJESH prerenal on CKD stage 3 likely hemodynamically mediated underlying ?CHF exacerbation - serum creatinine 2.27--> 2.01-->2.04 - BUN 49--> 42-->45 - GFR 24 - serum sodium 137 - urine creatinine 73.12, urine sodium 11 - FENa 0.2% - strict I&Os - avoid nephrotoxic medication - monitor electrolytes -furosemide changed from 40 mg b.i.d. p.o. to 40 mg b.i.d. IV - continue on metoprolol succinate # CKD stage 3-4 likely due to underlying uncontrolled longstanding T2DM - HbA1c 12.5 - urine total protein 50.8 mg/dL, urine glucose 4+ - renal ultrasound shows right kidney 8.0 cm, left kidney 8.3 cm with Echogenic renal parenchyma with thin renal cortex likely related to medical renal disease - parathyroid hormone 171.6 mg/dl - recommend strict blood glucose control - continue outpatient follow up with Nephrology for further workup # acute on chronic diastolic heart failure with (LVEF 55%, grade 1 diastolic dysfunction as reported on echo) # paroxysmal atrial fibrillation # COPD # fall with right shoulder injury # ? Syncope Goals of care discussed with the patient and the family for over 20 minutes. Full code. Plan discussed with Addendum Patient seen and examined, plan discussed with resident. Agree with above, we will follow closely Plan discussed with: Patient My Orders My Orders Orders - EDGAR MURRAY RESIDENT Procedure Category Date Status Time Hydrocodone-Acet PHA 01/11/24 In Process 5/325mg Tab ([place] 12:15 Furosemide Injection PHA 11/7/24 In Process (Lasix Injection) 18:00 EDGAR MURRAY Jan 12, 2024 12:00 YESSICA JOHNSON MD Jan 12, 2024 15:24
[2024-01-12] MEDS ORDERED: BUDE0.253 NEB (17:22)
[2024-01-12] MEDS: FUROSEMIDE 40 MG/4 ML VIAL IV SCH (18:00)
[2024-01-12] MEDS: CEPHALEXIN 250 MG CAP PO SCH (21:51)
[2024-01-13] VITALS (8 sets, daily range): BP systolic 112–139; BP diastolic 52–77; PULSE 58–107; RESP 15–18; TEMP 97.5–98.5; O2SAT 94–98
[2024-01-13 06:28] LABS: Basophils # (auto) 0.1 10 ^3/uL (0-0.2); Basophils % (auto) 0.7 % (0.0-2.0); Eosinophils # (auto) 0.2 10 ^3/uL (0-0.8); Eosinophils % (auto) 2.2 % (0.0-7.0); Hematocrit 42.2 % (36.0-46.0); Lymphocytes # (auto) 2.1 10 ^3/uL (0.4-5.4); Lymphocytes % (auto) 22.1 % (10.0-50.0); Mean Corpuscular Hemoglobin 33.6 pg (28.0-32.0); Mean Corpuscular Hgb Conc. 33.1 g/dL (32.0-36.0); Mean Corpuscular Volume 101.5 fL (80.0-100.0); Monocytes # (auto) 0.6 10 ^3/uL (0-1.3); Monocytes % (auto) 6.1 % (0.0-12.0); Neutrophils # (auto) 6.4 10 ^3/uL (1.6-8.6); Neutrophils % (auto) 68.9 % (37.0-80.0); Nucleated Red Blood Cells % 0.1 %; Platelet Count (auto) 221 10^3/uL (140-450); Red Blood Cells 4.16 10^6/uL (4.0-5.20); Red Cell Distribution Width 15.1 % (11.8-14.3); White Blood Cell 9.3 10^3/uL (4.4-10.8)
[2024-01-13 06:36] LABS: Anion Gap 9 (5-15); Carbon Dioxide 24 mmol/L (20-31); Chloride 105 mmol/L (98-107); Sodium 138 mmol/L (136-145)
[2024-01-13 06:37] LABS: Calcium 9.2 mg/dL (8.7-10.4)
[2024-01-13 06:42] LABS: BUN/Creatinine Ratio 21.5 (10.0-20.0); Blood Urea Nitrogen 39 mg/dL (9-23); Glucose 261 mg/dL (74-106)
--- NOTE | 2024-01-13 09:59 | DVHPN2 ---
Subjective She is still having severe pain in the right side of the ribcage and right hand associated with nausea and vomiting Changes from previous H/P or p: Changes Eyes: No Pain, No Vision change, No Conjunctivae inflammation, No Eyelid inflammation, No Other, No Redness ENT: No Ear pain, No Ear discharge, No Nose pain, No Nose discharge, No Nose congestion, No Mouth pain, No Mouth swelling, No Throat pain, No Throat swelling, No Other Cardiovascular: No Chest Pain, No Palpitations, No Orthopnea, No Paroxysmal Noc. Dyspnea, No Edema, No Lt Headedness, No Other Respiratory: No Cough, No Dry, No Shortness of breath, No SOB with excertion, No Wheezing, No Hemoptysis, No Pleuritic Pain, No Sputum, No Other Gastrointestinal: No Nausea, No Vomiting, No Abdominal Pain, No Diarrhea, No Constipation, No Melena, No Hematochezia, No Other Genitourinary: No Dysuria, No Frequency, No Incontinence, No Hematuria, No Retention, No Other Musculoskeletal: other (Right rib pain); No neck pain; shoulder pain (Right ); No arm pain, No back pain, No hand pain, No leg pain, No foot pain Skin: No Rash, No Lesions, No Jaundice, No Bruising, No Other Objective Vitals Vital Signs Date Time Temp Pulse Resp B/P (MAP) Pulse Ox O2 Delivery O2 Flow Rate FiO2 01/13/24 09:56 102 15 123/64 01/13/24 05:00 98.4 98 98.4 01/12/24 20:00 Room Air* 0 21 Intake/Output Intake and Output 01/13/24 07:00 Intake Total 905 ml Output Total 620 ml Balance 285 ml Intake Oral 905 ml Output Urine Total 620 ml # Voids 7 General Appearance: Alert, Oriented X3, Cooperative, No acute distress Lungs: Clear to auscultation, Normal air movement Cardiovascular: Regular rate, Normal S1, Normal S2 Abdomen: Normal bowel sounds, Soft, No tenderness Extremities: No edema Medications Current Medications Medications Dose Ordered Sig/Jennifer Route Start Time Stop Time Status Last Admin Dose Admin Clonidine HCl 0.1 mg Q4HP PRN PO 01/10/24 19:15 Ondansetron HCl 4 mg Q4HP PRN IV 01/10/24 19:15 01/13/24 09:33 4 MG Docusate Sodium 100 mg BIDPRN PRN PO 01/10/24 19:15 Acetaminophen 650 mg Q6HP PRN PO 01/10/24 19:15 01/11/24 00:15 650 MG Morphine Sulfate 2 mg Q4HPRN PRN IV 01/10/24 19:15 01/13/24 09:56 2 MG Nitroglycerin 0.4 mg Q5MINP PRN SL 01/10/24 19:15 Morphine Sulfate 2 mg Q30M PRN IV 01/10/24 19:15 Metoprolol Succinate 50 mg DAILY PO 01/12/24 10:00 01/12/24 08:41 50 MG Acetaminophen/ Hydrocodone Bitart 1 tab Q4HPRN PRN PO 01/11/24 12:15 01/12/24 14:01 1 TAB Apixaban 2.5 mg BID PO 01/11/24 22:00 01/13/24 09:33 2.5 MG Diagnostic Test (Pha) 1 strip ACHS 01/12/24 11:30 01/13/24 06:19 1 STRIP Insulin Human Regular ACHS SC 01/12/24 11:30 01/13/24 06:28 4 UNITS Dextrose 50 ml UD PRN IV 01/12/24 10:45 Cephalexin 500 mg BID PO 01/12/24 22:00 01/13/24 09:33 500 MG Furosemide 40 mg BIDD IV 01/12/24 18:00 01/13/24 06:16 40 MG Laboratory Results Laboratory Tests 01/13/24 05:46 Chemistry Test 01/13/24 05:46 Calcium Level 9.2 mg/dL (8.7-10.4) Urinalysis Test 01/10/24 18:22 01/11/24 14:07 Urine Color Colorless (Yellow) Urine Clarity Clear (Clear) Urine pH 5.0 (5.0-9.0) Urine Specific [place] 1.023 (1.001-1.035) Urine Protein Negative (Negative) Urine Ketones Negative (Negative) Urine Blood Negative /uL (Negative) Urine Nitrite Negative (Negative) Urine Bilirubin Negative (Negative) Urine Urobilinogen Normal mg/dL (Negative) Urine Leukocyte Esterase 2+ /uL (Negative) Urine RBC 6 /hpf (0 - 4) Urine WBC 58 /hpf (0 - 5) Urine Squamous Epithelial Cells Few /hpf (<5) Urine Bacteria Few /hpf (None Seen) H Urine Yeast (Budding) Occasional /hpf (None Urine Glucose 4+ mg/dL (Normal) H Urine Creatinine 73.12 mg/dL (30.0-125.0) Urine Protein/Creatinine Ratio 0.69 Urine Sodium 11 mmol/L (40-220) L Urine Total Protein 50.8 mg/dL (1-14) H Microbiology Microbiology Date/Time Source Procedure Growth Status 01/10/24 18:22 Voided Urine Urine Culture - Final Complete Assessment/Plan Assessment/Plan Fall Right hand nondisplaced fracture of the distal 5th metacarpal Syncope CKD h/o CHF Paroxysmal afib on Coumadin h/o DVT and PE HTN PLAN: 01/11/2024: X-Rays R hand MRI brain Carotid US Echo Nephrology Neurology Cardiology Switch Coumadin to Eliquis 01/12/2024: X-ray of the hand shows fracture of the distal 5th metacarpal Apply an Reid wrap to the right hand Physical therapy Pain control Discharge planning for tomorrow 01/13/2024: Patient is still having nausea and vomiting with severe pain in the right side of the ribcage and right hand Hold the discharge Continue pain management with morphine and [place] Zofran as needed for the nausea and vomiting The patient is receiving Lasix 40 mg twice a day Nephrology is following chronic kidney disease Plan discussed with: Patient My Orders Orders - ANTHONY REYES MD Procedure Category Date Status Time Pt Request For Service PT 01/12/24 Logged 10:44 Glucose Blood PHA 01/12/24 In Process (Accu-Chek Comfort 11:30 Insulin R (Human) PHA 01/12/24 In Process (Insulin R) 11:30 Dextrose 50% Syringe PHA 01/12/24 In Process 10:45 Cephalexin Capsule PHA 01/12/24 In Process (Keflex Capsule) 22:00 Date of Service: Jan 13, 2024 Billing Provider: ANTHONY REYES MD Common Visit Codes: NOT BILLABLE ANTHONY REYES MD Jan 13, 2024 09:59
--- NOTE | 2024-01-13 10:57 | DVH ---
EXAM: XY CHEST XRAY 1 VIEW Indication:CHF Technique: Single frontal view of the chest was obtained Comparison: None FINDINGS: Lines and Tubes: None Lungs: No focal consolidation. Pleura: No effusion. No pneumothorax. Cardiomediastinal contours: Cardiomegaly. Atherosclerotic vascular calcifications of the thoracic ao rta are noted. Bones: No acute osseous abnormality. IMPRESSION: No acute cardiopulmonary disease.
[2024-01-13] MEDS: MECLIZINE HCL 25 MG TAB PO PRN (13:17)
--- NOTE | 2024-01-13 20:12 | DVHPN2 ---
Progress Note - Dictate Date Seen: Jan 13, 2024 Medical Necessity Reason Pt with a Central, PICC or Fol: No Subjective Ms. Bañuelos is an 78 years old right-handed female with a history of hypertension, diabetes, AFib on Coumadin, the patient came to the [facility] on 01[facility]10[facility]2024 with a chief company of fall injury. I have seen and examined the patient, I have discussed with her nurse, the patient is doing fine, alert and fully oriented Earlier today, when she was out of bed, she developed dizziness, lightheadedness, nausea, and move feeling behind the eyes, but she did not fall or pass out Urinalysis, 01/10/2024: WBC: 58, urine leukocyte esterase: 2+ WBC/HB/PLT/MCV, 01/11/2024: 447/14.1/249/99.8 PT/INR/PTT, 01/11/2024: 17.9/1.76/31.6 BUN/CR, 01/11/2024: 42/2.01 Liver function tests, 01/11/2024: Unremarkable HGB A1c, 01/11/2024, 12.5 Glucose, 01/10/2024: 452, 451, 01/11/2024: 464 EEG, 01/12/2024: Normal Carotid Doppler, 01/11/2024: No acute findings in the arteries of the neck. X-ray, left shoulder, 01/11/2024: Nondisplaced oblique fracture of the distal fifth metacarpal. Mild soft tissue edema. There is no evidence of dislocation, blastic, or lytic lesions. No radiopaque foreign bodies. Osteopenia. MRI head, 01/11/2024: No evidence of acute infarction, intracranial hemorrhage, mass lesion or hydrocephalus. Moderate changes of chronic microvascular ischemic disease. Old lacunar infarct in the right basal ganglia vital signs Vital Sign Date Time Temp Pulse Resp B/P (MAP) Pulse Ox O2 Delivery O2 Flow Rate FiO2 01/13/24 17:50 137/77 01/13/24 17:00 97.5 107 18 94 97.5 01/12/24 20:00 Room Air* 0 21 Total Intake and Output 01/12/24 01/12/24 01/13/24 15:00 23:00 07:00 Intake Total 415 ml 490 ml Output Total 620 ml Balance 415 ml -130 ml medications Current Medications Medications Dose Ordered Sig/Jennifer Route Start Time Stop Time Status Last Admin Dose Admin Clonidine HCl 0.1 mg Q4HP PRN PO 01/10/24 19:15 Ondansetron HCl 4 mg Q4HP PRN IV 01/10/24 19:15 01/13/24 09:33 4 MG Docusate Sodium 100 mg BIDPRN PRN PO 01/10/24 19:15 Acetaminophen 650 mg Q6HP PRN PO 01/10/24 19:15 01/11/24 00:15 650 MG Morphine Sulfate 2 mg Q4HPRN PRN IV 01/10/24 19:15 01/13/24 09:56 2 MG Nitroglycerin 0.4 mg Q5MINP PRN SL 01/10/24 19:15 Morphine Sulfate 2 mg Q30M PRN IV 01/10/24 19:15 Metoprolol Succinate 50 mg DAILY PO 01/12/24 10:00 01/13/24 13:17 50 MG Acetaminophen/ Hydrocodone Bitart 1 tab Q4HPRN PRN PO 01/11/24 12:15 01/12/24 14:01 1 TAB Apixaban 2.5 mg BID PO 01/11/24 22:00 01/13/24 09:33 2.5 MG Diagnostic Test (Pha) 1 strip ACHS 01/12/24 11:30 01/13/24 17:00 1 STRIP Insulin Human Regular ACHS SC 01/12/24 11:30 01/13/24 17:49 6 UNITS Dextrose 50 ml UD PRN IV 01/12/24 10:45 Cephalexin 500 mg BID PO 01/12/24 22:00 01/13/24 09:33 500 MG Furosemide 40 mg BIDD IV 01/12/24 18:00 01/13/24 17:50 40 MG Meclizine HCl 25 mg Q8HPRN PRN PO 01/13/24 13:00 01/13/24 13:17 25 MG objective General: the patient is well developed and nourished. No acute distress. MENTAL STATUS: Awake and alert. Oriented to person, place, time and general circumstances. Able to give personal history SPEECH, LANGUAGE, HIGHER CORTICAL FUNCTION: no aphasia or dysathria. CRANIAL NERVES: Pupils are equal, round and reactive. EOMs full and conjugate. No nystagmus. Facial sensation intact in all three divisions bilaterally. Mandibular strength intact. Facial muscles symmetrical and strength intact. SENSATION: Sensation to touch and pinprick is normal. MOTOR: Normal tone in the upper and lower extremity. Normal muscle bulk. No fasciculations. No abnormal movements or posturing. Muscle strength of the major groups in the extremities is 5/5. REFLEXES: Deep tendon reflexes are symmetrical. No pathological reflexes. CEREBELLAR/COORDINATION: Finger to nose is normal bilaterally. GAIT/STATION: deferred. laboratory and microbiology Laboratory Tests 01/13/24 05:46 Test 01/13/24 05:46 Range/Units Serum Glucose 261 H 74-106 mg/dL Problem List Fall injury with amnesia, ? Syncope, ? Partial simple seizure Finger fracture Uncontrolled diabetes Dizziness, to rule out orthostatic hypotension Assessment/Plan Monitoring Supportive treatment Telemetry Orthostatic vitals Syncope precautions discussed This medical document was created using an electronic medical record system with [employer] dictation system. Although this document has been carefully reviewed, there may still be some phonetic and typographical errors. These areas are purely typographical due to imperfections of the software programs, and do not reflect any compromise in the patient's medical care. Prognosis poor Plan discussed with: Patient, Other BONNY LUGO MD Jan 13, 2024 20:12
--- NOTE | 2024-01-13 20:15 | DVHEEG2 ---
Neurology EEG Procedural Note Procedural Note EXAM DATE: 01/12/2024 REFERRING DOCTOR: Dr. Lugo TECHNIQUE: Eighteen channels of EEG, 2 channels of EOG, and 1 channel of EKG were recorded using the International 10/20 system. CLINICAL DATA: The patient was referred for an EEG evaluation for the evidence of seizure disorder. MEDICATIONS: See chart BACKGROUND ACTIVITY: While the patient was awake, the background activity consisted of well regulated 10 Hz rhythmic waveforms, symmetrically distributed over both posterior quadrants and was reactive to eye opening. ACTIVATION: Hyperventilation: Not done Photic Stimulation: No photic convulsive response Sleep: Noticed IMPRESSION: This is a normal EEG. No focal, lateralized, or epileptiform features are noted. If clinically indicated to rule out a seizure disorder, recommend repeat EEG with sleep deprivation. The EKG channel showed an irregular heart rate of 84/[place] [address] BONNY LUGO MD Jan 13, 2024 20:15
[2024-01-14] VITALS (7 sets, daily range): BP systolic 107–140; BP diastolic 41–77; PULSE 80–98; RESP 16–20; TEMP 98–98.4; O2SAT 94–97
[2024-01-14 06:23] LABS: Chloride 104 mmol/L (98-107); Potassium 3.7 mmol/L (3.5-5.1); Sodium 137 mmol/L (136-145)
[2024-01-14 06:24] LABS: Anion Gap 9 (5-15); Calcium 9.2 mg/dL (8.7-10.4); Carbon Dioxide 24 mmol/L (20-31)
[2024-01-14 06:29] LABS: BUN/Creatinine Ratio 21.4 (10.0-20.0); Blood Urea Nitrogen 36 mg/dL (9-23); Glucose 266 mg/dL (74-106)
--- NOTE | 2024-01-14 14:28 | DVHPN2 ---
Subjective The patient is seen and examined at bedside. Still complaint of weakness. Reviewed: Care Plan, H&P, Labs, Medications, Previous Orders, Radiology Changes from previous H/P or p: No Changes Eyes: No Pain, No Vision change, No Conjunctivae inflammation, No Eyelid inflammation, No Other, No Redness ENT: No Ear pain, No Ear discharge, No Nose pain, No Nose discharge, No Nose congestion, No Mouth pain, No Mouth swelling, No Throat pain, No Throat swelling, No Other Cardiovascular: No Chest Pain, No Palpitations, No Orthopnea, No Paroxysmal Noc. Dyspnea, No Edema, No Lt Headedness, No Other Respiratory: No Cough, No Dry, No Shortness of breath, No SOB with excertion, No Wheezing, No Hemoptysis, No Pleuritic Pain, No Sputum, No Other Gastrointestinal: No Nausea, No Vomiting, No Abdominal Pain, No Diarrhea, No Constipation, No Melena, No Hematochezia, No Other Genitourinary: No Dysuria, No Frequency, No Incontinence, No Hematuria, No Retention, No Other Musculoskeletal: other (Right rib pain); No neck pain; shoulder pain (Right ); No arm pain, No back pain, No hand pain, No leg pain, No foot pain Skin: No Rash, No Lesions, No Jaundice, No Bruising, No Other Objective Vitals Vital Signs Date Time Temp Pulse Resp B/P (MAP) Pulse Ox O2 Delivery O2 Flow Rate FiO2 01/14/24 13:00 98.0 85 17 107/41 (63) 96 98.0 01/14/24 08:00 Room Air* 0 21 Intake/Output Intake and Output 01/14/24 07:00 Intake Total 1900 ml Output Total 700 ml Balance 1200 ml Intake Oral 1900 ml Output Urine Total 700 ml # Voids 9 General Appearance: Alert, Oriented X3, Cooperative, No acute distress Lungs: Clear to auscultation, Normal air movement Cardiovascular: Regular rate, Normal S1, Normal S2 Abdomen: Normal bowel sounds, Soft, No tenderness Extremities: No edema Medications Current Medications Medications Dose Ordered Sig/Jennifer Route Start Time Stop Time Status Last Admin Dose Admin Clonidine HCl 0.1 mg Q4HP PRN PO 01/10/24 19:15 Ondansetron HCl 4 mg Q4HP PRN IV 01/10/24 19:15 01/13/24 09:33 4 MG Docusate Sodium 100 mg BIDPRN PRN PO 01/10/24 19:15 Acetaminophen 650 mg Q6HP PRN PO 01/10/24 19:15 01/11/24 00:15 650 MG Morphine Sulfate 2 mg Q4HPRN PRN IV 01/10/24 19:15 01/13/24 09:56 2 MG Nitroglycerin 0.4 mg Q5MINP PRN SL 01/10/24 19:15 Morphine Sulfate 2 mg Q30M PRN IV 01/10/24 19:15 Metoprolol Succinate 50 mg DAILY PO 01/12/24 10:00 01/14/24 10:48 50 MG Acetaminophen/ Hydrocodone Bitart 1 tab Q4HPRN PRN PO 01/11/24 12:15 01/14/24 11:53 1 TAB Apixaban 2.5 mg BID PO 01/11/24 22:00 01/14/24 10:48 2.5 MG Diagnostic Test (Pha) 1 strip ACHS 01/12/24 11:30 01/14/24 11:52 1 STRIP Insulin Human Regular ACHS SC 01/12/24 11:30 01/14/24 11:53 6 UNITS Dextrose 50 ml UD PRN IV 01/12/24 10:45 Cephalexin 500 mg BID PO 01/12/24 22:00 01/14/24 10:48 500 MG Furosemide 40 mg BIDD IV 01/12/24 18:00 01/14/24 05:58 40 MG Meclizine HCl 25 mg Q8HPRN PRN PO 01/13/24 13:00 01/13/24 13:17 25 MG Laboratory Results Laboratory Tests 01/13/24 05:46 01/14/24 04:55 Chemistry Test 01/14/24 04:55 Calcium Level 9.2 mg/dL (8.7-10.4) Urinalysis Test 01/10/24 18:22 01/11/24 14:07 Urine Color Colorless (Yellow) Urine Clarity Clear (Clear) Urine pH 5.0 (5.0-9.0) Urine Specific [place] 1.023 (1.001-1.035) Urine Protein Negative (Negative) Urine Ketones Negative (Negative) Urine Blood Negative /uL (Negative) Urine Nitrite Negative (Negative) Urine Bilirubin Negative (Negative) Urine Urobilinogen Normal mg/dL (Negative) Urine Leukocyte Esterase 2+ /uL (Negative) Urine RBC 6 /hpf (0 - 4) Urine WBC 58 /hpf (0 - 5) Urine Squamous Epithelial Cells Few /hpf (<5) Urine Bacteria Few /hpf (None Seen) H Urine Yeast (Budding) Occasional /hpf (None Urine Glucose 4+ mg/dL (Normal) H Urine Creatinine 73.12 mg/dL (30.0-125.0) Urine Protein/Creatinine Ratio 0.69 Urine Sodium 11 mmol/L (40-220) L Urine Total Protein 50.8 mg/dL (1-14) H Microbiology Microbiology Date/Time Source Procedure Growth Status 01/10/24 18:22 Voided Urine Urine Culture - Final Complete Labs and/or images reviewed: Labs reviewed by me Assessment/Plan Assessment/Plan Fall Right hand nondisplaced fracture of the distal 5th metacarpal Syncope CKD h/o CHF Paroxysmal afib on Coumadin h/o DVT and PE HTN PLAN: Continuing current management. Continuing with pain medication. Continuing with nausea medication Zofran. Continuing with physical therapy. Continuing with Lantus. Continuing with Eliquis. Hold Lasix for now. Appreciate Neurology, Nephrology, and Cardiology input. Plan discussed with: Patient Date of Service: Jan 14, 2024 Billing Provider: TAMIKO MORA MD Common Visit Codes: [id number] INP/OBS CARE(HIGH) TAMIKO MORA MD Jan 14, 2024 14:28
[2024-01-15] VITALS (9 sets, daily range): BP systolic 107–157; BP diastolic 55–78; PULSE 77–133; RESP 17–20; TEMP 97.6–98.2; O2SAT 93–99
[2024-01-15] MEDS ORDERED: DEXTROSE (50%) 50ML SYRG IV PRN (00:45)
[2024-01-15] MEDS: ACCU-CHEK COMFORT CURVE STRIP VI SCH (04:07)
[2024-01-15] MEDS: InsuLIN REG 1unit/0.01ml Soln (100units/ml) SC SCH (04:08)
[2024-01-15] MEDS: INSULIN LANTUS (GLARGINE) 1 /0.01ml (100units/ml) SC SCH (09:29)
--- NOTE | 2024-01-15 19:36 | DVHPN2 ---
Progress Note - Dictate Date Seen: Jan 15, 2024 Medical Necessity Reason Pt with a Central, PICC or Fol: No Subjective Ms. Bañuelos is an 78 years old right-handed female with a history of hypertension, diabetes, AFib on Coumadin, the patient came to the [facility] on 01/10/2024 with a chief company of fall injury. I have seen and examined the patient, I have discussed with her nurse, the patient is doing fine, alert and fully oriented When she was off bed today, she had mild dizziness/lightheadedness and nausea Urinalysis, 01/10/2024: WBC: 58, urine leukocyte esterase: 2+ WBC/HB/PLT/MCV, 01/11/2024: 447/14.1/249/99.8 PT/INR/PTT, 01/11/2024: 17.9/1.76/31.6 BUN/CR, 01/11/2024: 42/2.01 Liver function tests, 01/11/2024: Unremarkable HGB A1c, 01/11/2024, 12.5 Glucose, 01/10/2024: 452, 451, 01/11/2024: 464 EEG, 01/12/2024: Normal Carotid Doppler, 01/11/2024: No acute findings in the arteries of the neck. X-ray, left shoulder, 01/11/2024: Nondisplaced oblique fracture of the distal fifth metacarpal. Mild soft tissue edema. There is no evidence of dislocation, blastic, or lytic lesions. No radiopaque foreign bodies. Osteopenia. MRI head, 01/11/2024: No evidence of acute infarction, intracranial hemorrhage, mass lesion or hydrocephalus. Moderate changes of chronic microvascular ischemic disease. Old lacunar infarct in the right basal ganglia vital signs Vital Sign Date Time Temp Pulse Resp B/P (MAP) Pulse Ox O2 Delivery O2 Flow Rate FiO2 01/15/24 18:12 138/70 01/15/24 17:00 98.1 86 19 98 98.1 01/15/24 08:42 Room Air* 0 21 Total Intake and Output 01/14/24 01/14/24 01/15/24 15:00 23:00 07:00 Intake Total 800 ml 650 ml 100 ml Output Total 600 ml Balance 800 ml 650 ml -500 ml medications Current Medications Medications Dose Ordered Sig/Jennifer Route Start Time Stop Time Status Last Admin Dose Admin Clonidine HCl 0.1 mg Q4HP PRN PO 01/10/24 19:15 Ondansetron HCl 4 mg Q4HP PRN IV 01/10/24 19:15 01/13/24 09:33 4 MG Docusate Sodium 100 mg BIDPRN PRN PO 01/10/24 19:15 Acetaminophen 650 mg Q6HP PRN PO 01/10/24 19:15 01/11/24 00:15 650 MG Morphine Sulfate 2 mg Q4HPRN PRN IV 01/10/24 19:15 01/13/24 09:56 2 MG Nitroglycerin 0.4 mg Q5MINP PRN SL 01/10/24 19:15 Morphine Sulfate 2 mg Q30M PRN IV 01/10/24 19:15 Metoprolol Succinate 50 mg DAILY PO 01/12/24 10:00 01/14/24 10:48 50 MG Acetaminophen/ Hydrocodone Bitart 1 tab Q4HPRN PRN PO 01/11/24 12:15 01/14/24 17:55 1 TAB Apixaban 2.5 mg BID PO 01/11/24 22:00 01/15/24 09:08 2.5 MG Cephalexin 500 mg BID PO 01/12/24 22:00 01/15/24 09:08 500 MG Furosemide 40 mg BIDD IV 01/12/24 18:00 01/15/24 18:12 40 MG Meclizine HCl 25 mg Q8HPRN PRN PO 01/13/24 13:00 01/13/24 13:17 25 MG Diagnostic Test (Pha) 1 strip IQ4HR 01/15/24 04:00 01/15/24 17:35 1 STRIP Insulin Human Regular IQ4HR SC 01/15/24 04:00 01/15/24 17:39 6 UNITS Dextrose 50 ml UD PRN IV 01/15/24 00:45 Insulin Glargine 15 units Q12HR SC 01/15/24 10:00 01/15/24 09:29 15 UNITS objective General: the patient is well developed and nourished. No acute distress. MENTAL STATUS: Awake and alert. Oriented to person, place, time and general circumstances. Able to give personal history SPEECH, LANGUAGE, HIGHER CORTICAL FUNCTION: no aphasia or dysathria. CRANIAL NERVES: Pupils are equal, round and reactive. EOMs full and conjugate. No nystagmus. Facial sensation intact in all three divisions bilaterally. Mandibular strength intact. Facial muscles symmetrical and strength intact. SENSATION: Sensation to touch and pinprick is normal. MOTOR: Normal tone in the upper and lower extremity. Normal muscle bulk. No fasciculations. No abnormal movements or posturing. Muscle strength of the major groups in the extremities is 5/5. REFLEXES: Deep tendon reflexes are symmetrical. No pathological reflexes. CEREBELLAR/COORDINATION: Finger to nose is normal bilaterally. GAIT/STATION: deferred. laboratory and microbiology Laboratory Tests 01/14/24 04:55 01/13/24 05:46 Test 01/14/24 04:55 Range/Units Serum Glucose 266 H 74-106 mg/dL Problem List Fall injury with amnesia, ? Syncope, ? Partial simple seizure Finger fracture Uncontrolled diabetes Dizziness, to rule out orthostatic hypotension Assessment/Plan Monitoring Supportive treatment Telemetry Orthostatic vitals (talked to her nurse) Syncope precautions discussed This medical document was created using an electronic medical record system with Q-go dictation system. Although this document has been carefully reviewed, there may still be some phonetic and typographical errors. These areas are purely typographical due to imperfections of the software programs, and do not reflect any compromise in the patient's medical care. Prognosis poor Plan discussed with: Patient, Other BONNY LUGO MD Jan 15, 2024 19:36
--- NOTE | 2024-01-15 23:07 | DVHPN2 ---
Subjective The patient is seen and examined bedside. Still complain of pain of her finger Reviewed: Care Plan, H&P, Labs, Medications, Previous Orders Changes from previous H/P or p: No Changes Eyes: No Pain, No Vision change, No Conjunctivae inflammation, No Eyelid inflammation, No Other, No Redness ENT: No Ear pain, No Ear discharge, No Nose pain, No Nose discharge, No Nose congestion, No Mouth pain, No Mouth swelling, No Throat pain, No Throat swelling, No Other Cardiovascular: No Chest Pain, No Palpitations, No Orthopnea, No Paroxysmal Noc. Dyspnea, No Edema, No Lt Headedness, No Other Respiratory: No Cough, No Dry, No Shortness of breath, No SOB with excertion, No Wheezing, No Hemoptysis, No Pleuritic Pain, No Sputum, No Other Gastrointestinal: No Nausea, No Vomiting, No Abdominal Pain, No Diarrhea, No Constipation, No Melena, No Hematochezia, No Other Genitourinary: No Dysuria, No Frequency, No Incontinence, No Hematuria, No Retention, No Other Musculoskeletal: other (Right rib pain); No neck pain; shoulder pain (Right ); No arm pain, No back pain, No hand pain, No leg pain, No foot pain Skin: No Rash, No Lesions, No Jaundice, No Bruising, No Other Objective Vitals Vital Signs Date Time Temp Pulse Resp B/P (MAP) Pulse Ox O2 Delivery O2 Flow Rate FiO2 01/15/24 21:00 115 19 154/64 (94) 96 01/15/24 21:00 98.2 98.2 01/15/24 08:42 Room Air* 0 21 Intake/Output Intake and Output 01/15/24 07:00 Intake Total 1550 ml Output Total 600 ml Balance 950 ml Intake Oral 1550 ml Output Urine Total 600 ml # Voids 6 General Appearance: Alert, Oriented X3, Cooperative, No acute distress Lungs: Clear to auscultation, Normal air movement Cardiovascular: Regular rate, Normal S1, Normal S2 Abdomen: Normal bowel sounds, Soft, No tenderness Extremities: No edema Medications Current Medications Medications Dose Ordered Sig/Jennifer Route Start Time Stop Time Status Last Admin Dose Admin Clonidine HCl 0.1 mg Q4HP PRN PO 01/10/24 19:15 Ondansetron HCl 4 mg Q4HP PRN IV 01/10/24 19:15 01/13/24 09:33 4 MG Docusate Sodium 100 mg BIDPRN PRN PO 01/10/24 19:15 Acetaminophen 650 mg Q6HP PRN PO 01/10/24 19:15 01/11/24 00:15 650 MG Morphine Sulfate 2 mg Q4HPRN PRN IV 01/10/24 19:15 01/13/24 09:56 2 MG Nitroglycerin 0.4 mg Q5MINP PRN SL 01/10/24 19:15 Morphine Sulfate 2 mg Q30M PRN IV 01/10/24 19:15 Metoprolol Succinate 50 mg DAILY PO 01/12/24 10:00 01/14/24 10:48 50 MG Acetaminophen/ Hydrocodone Bitart 1 tab Q4HPRN PRN PO 01/11/24 12:15 01/14/24 17:55 1 TAB Apixaban 2.5 mg BID PO 01/11/24 22:00 01/15/24 22:24 2.5 MG Cephalexin 500 mg BID PO 01/12/24 22:00 01/15/24 22:23 500 MG Furosemide 40 mg BIDD IV 01/12/24 18:00 01/15/24 18:12 40 MG Meclizine HCl 25 mg Q8HPRN PRN PO 01/13/24 13:00 01/13/24 13:17 25 MG Diagnostic Test (Pha) 1 strip IQ4HR 01/15/24 04:00 01/15/24 22:46 1 STRIP Insulin Human Regular IQ4HR SC 01/15/24 04:00 01/15/24 22:43 15 UNITS Dextrose 50 ml UD PRN IV 01/15/24 00:45 Insulin Glargine 15 units Q12HR SC 01/15/24 10:00 01/15/24 22:25 15 UNITS Laboratory Results Laboratory Tests 01/13/24 05:46 01/14/24 04:55 Urinalysis Test 01/10/24 18:22 01/11/24 14:07 Urine Color Colorless (Yellow) Urine Clarity Clear (Clear) Urine pH 5.0 (5.0-9.0) Urine Specific [place] 1.023 (1.001-1.035) Urine Protein Negative (Negative) Urine Ketones Negative (Negative) Urine Blood Negative /uL (Negative) Urine Nitrite Negative (Negative) Urine Bilirubin Negative (Negative) Urine Urobilinogen Normal mg/dL (Negative) Urine Leukocyte Esterase 2+ /uL (Negative) Urine RBC 6 /hpf (0 - 4) Urine WBC 58 /hpf (0 - 5) Urine Squamous Epithelial Cells Few /hpf (<5) Urine Bacteria Few /hpf (None Seen) H Urine Yeast (Budding) Occasional /hpf (None Urine Glucose 4+ mg/dL (Normal) H Urine Creatinine 73.12 mg/dL (30.0-125.0) Urine Protein/Creatinine Ratio 0.69 Urine Sodium 11 mmol/L (40-220) L Urine Total Protein 50.8 mg/dL (1-14) H Microbiology Microbiology Date/Time Source Procedure Growth Status 01/10/24 18:22 Voided Urine Urine Culture - Final Complete Labs and/or images reviewed: Labs reviewed by me Assessment/Plan Assessment/Plan Fall Right hand nondisplaced fracture of the distal 5th metacarpal Syncope CKD h/o CHF Paroxysmal afib on Coumadin h/o DVT and PE HTN PLAN: Continuing current management. Continuing with pain medication. Continuing with nausea medication Zofran. Continuing with physical therapy. Continuing with Lantus. Continuing with Eliquis. Hold Lasix for now. Appreciate Neurology, Nephrology, and Cardiology input. Plan discussed with: Patient Date of Service: Jan 15, 2024 Billing Provider: TAMIKO MORA MD Common Visit Codes: [id number] INP/OBS CARE(HIGH) TAMIKO MORA MD Jan 15, 2024 23:07
[2024-01-16] VITALS (8 sets, daily range): BP systolic 121–141; BP diastolic 53–73; PULSE 69–107; RESP 15–19; TEMP 97.4–98.4; O2SAT 93–100
--- NOTE | 2024-01-16 15:21 | DVHPN2 ---
Subjective She is still dizzy Blood glucose is high Weak Changes from previous H/P or p: Changes Eyes: No Pain, No Vision change, No Conjunctivae inflammation, No Eyelid inflammation, No Other, No Redness ENT: No Ear pain, No Ear discharge, No Nose pain, No Nose discharge, No Nose congestion, No Mouth pain, No Mouth swelling, No Throat pain, No Throat swelling, No Other Cardiovascular: No Chest Pain, No Palpitations, No Orthopnea, No Paroxysmal Noc. Dyspnea, No Edema, No Lt Headedness, No Other Respiratory: No Cough, No Dry, No Shortness of breath, No SOB with excertion, No Wheezing, No Hemoptysis, No Pleuritic Pain, No Sputum, No Other Gastrointestinal: No Nausea, No Vomiting, No Abdominal Pain, No Diarrhea, No Constipation, No Melena, No Hematochezia, No Other Genitourinary: No Dysuria, No Frequency, No Incontinence, No Hematuria, No Retention, No Other Musculoskeletal: other (Right rib pain); No neck pain; shoulder pain (Right ); No arm pain, No back pain, No hand pain, No leg pain, No foot pain Skin: No Rash, No Lesions, No Jaundice, No Bruising, No Other Objective Vitals Vital Signs Date Time Temp Pulse Resp B/P (MAP) Pulse Ox O2 Delivery O2 Flow Rate FiO2 01/16/24 12:30 98.0 95 16 137/64 (88) 94 98.0 01/15/24 20:00 Room Air* 0 21 Intake/Output Intake and Output 01/16/24 07:00 Intake Total 200 ml Output Total 800 ml Balance -600 ml Intake Oral 200 ml Output Urine Total 800 ml # Voids 7 # Bowel Movements 1 General Appearance: Alert, Oriented X3, Cooperative, No acute distress Lungs: Clear to auscultation, Normal air movement Cardiovascular: Regular rate, Normal S1, Normal S2 Abdomen: Normal bowel sounds, Soft, No tenderness Extremities: No edema Medications Current Medications Medications Dose Ordered Sig/Jennifer Route Start Time Stop Time Status Last Admin Dose Admin Clonidine HCl 0.1 mg Q4HP PRN PO 01/10/24 19:15 Ondansetron HCl 4 mg Q4HP PRN IV 01/10/24 19:15 01/13/24 09:33 4 MG Docusate Sodium 100 mg BIDPRN PRN PO 01/10/24 19:15 Acetaminophen 650 mg Q6HP PRN PO 01/10/24 19:15 01/11/24 00:15 650 MG Morphine Sulfate 2 mg Q4HPRN PRN IV 01/10/24 19:15 01/13/24 09:56 2 MG Nitroglycerin 0.4 mg Q5MINP PRN SL 01/10/24 19:15 Morphine Sulfate 2 mg Q30M PRN IV 01/10/24 19:15 Metoprolol Succinate 50 mg DAILY PO 01/12/24 10:00 01/16/24 09:43 50 MG Acetaminophen/ Hydrocodone Bitart 1 tab Q4HPRN PRN PO 01/11/24 12:15 01/14/24 17:55 1 TAB Apixaban 2.5 mg BID PO 01/11/24 22:00 01/16/24 09:43 2.5 MG Cephalexin 500 mg BID PO 01/12/24 22:00 01/16/24 09:43 500 MG Furosemide 40 mg BIDD IV 01/12/24 18:00 01/16/24 05:41 40 MG Meclizine HCl 25 mg Q8HPRN PRN PO 01/13/24 13:00 01/13/24 13:17 25 MG Diagnostic Test (Pha) 1 strip IQ4HR 01/15/24 04:00 01/16/24 12:16 1 STRIP Insulin Human Regular IQ4HR PA 01/15/24 04:00 01/16/24 12:21 9 UNITS Dextrose 50 ml UD PRN IV 01/15/24 00:45 Insulin Glargine 15 units Q12HR PA 01/15/24 10:00 01/16/24 09:47 15 UNITS Laboratory Results Laboratory Tests 01/13/24 05:46 01/14/24 04:55 Urinalysis Test 01/10/24 18:22 01/11/24 14:07 Urine Color Colorless (Yellow) Urine Clarity Clear (Clear) Urine pH 5.0 (5.0-9.0) Urine Specific [place] 1.023 (1.001-1.035) Urine Protein Negative (Negative) Urine Ketones Negative (Negative) Urine Blood Negative /uL (Negative) Urine Nitrite Negative (Negative) Urine Bilirubin Negative (Negative) Urine Urobilinogen Normal mg/dL (Negative) Urine Leukocyte Esterase 2+ /uL (Negative) Urine RBC 6 /hpf (0 - 4) Urine WBC 58 /hpf (0 - 5) Urine Squamous Epithelial Cells Few /hpf (<5) Urine Bacteria Few /hpf (None Seen) H Urine Yeast (Budding) Occasional /hpf (None Urine Glucose 4+ mg/dL (Normal) H Urine Creatinine 73.12 mg/dL (30.0-125.0) Urine Protein/Creatinine Ratio 0.69 Urine Sodium 11 mmol/L (40-220) L Urine Total Protein 50.8 mg/dL (1-14) H Microbiology Microbiology Date/Time Source Procedure Growth Status 01/10/24 18:22 Voided Urine Urine Culture - Final Complete Assessment/Plan Assessment/Plan Fall Right hand nondisplaced fracture of the distal 5th metacarpal Syncope CKD h/o CHF Paroxysmal afib on Coumadin h/o DVT and PE HTN PLAN: 01/11/2024: X-Rays R hand MRI brain Carotid US Echo Nephrology Neurology Cardiology Switch Coumadin to Eliquis 01/12/2024: X-ray of the hand shows fracture of the distal 5th metacarpal Apply an Reid wrap to the right hand Physical therapy Pain control Discharge planning for tomorrow 01/13/2024: Patient is still having nausea and vomiting with severe pain in the right side of the ribcage and right hand Hold the discharge Continue pain management with morphine and Gypsy Zofran as needed for the nausea and vomiting The patient is receiving Lasix 40 mg twice a day Nephrology is following chronic kidney disease 01/16/24: Nausea: Zofran prn Weakness: Physical therapy Uncontrolled DM: Increase Lantus to 20 units bid AFIB: Eliquis 2.5mg bid Orthostatic hypotension: DC Lasix HTN. Low BP, DC Lasix Plan discussed with: Patient Date of Service: Jan 16, 2024 Billing Provider: ANTHONY REYES MD Common Visit Codes: NOT BILLABLE ANTHONY REYES MD Jan 16, 2024 15:21
[2024-01-16 16:35] LABS: Basophils # (auto) 0.1 10 ^3/uL (0-0.2); Basophils % (auto) 0.6 % (0.0-2.0); Eosinophils # (auto) 0.2 10 ^3/uL (0-0.8); Eosinophils % (auto) 2.2 % (0.0-7.0); Hematocrit 37.2 % (36.0-46.0); Hemoglobin 12.7 g/dL (12.2-16.2); Lymphocytes # (auto) 1.3 10 ^3/uL (0.4-5.4); Lymphocytes % (auto) 15.8 % (10.0-50.0); Mean Corpuscular Hemoglobin 34.4 pg (28.0-32.0); Mean Corpuscular Volume 101.3 fL (80.0-100.0); Monocytes # (auto) 0.5 10 ^3/uL (0-1.3); Monocytes % (auto) 6.4 % (0.0-12.0); Neutrophils # (auto) 6.3 10 ^3/uL (1.6-8.6); Nucleated Red Blood Cells % 0.1 %; Platelet Count (auto) 220 10^3/uL (140-450); Red Blood Cells 3.67 10^6/uL (4.0-5.20); Red Cell Distribution Width 14.9 % (11.8-14.3); White Blood Cell 8.5 10^3/uL (4.4-10.8)
[2024-01-16 16:51] LABS: INR 1.08 (0.9-1.15); Partial Thromboplastin Time 25.8 SEC (24.5-34.5); Prothrombin Time 11.4 sec (9.3-11.8)
[2024-01-16 16:57] LABS: Alanine Aminotransferase 26 U/L (7-40); Albumin 3.8 g/dL (3.2-4.8); Alkaline Phosphatase 136 U/L (46-116); Anion Gap 6 (5-15); Aspartate Aminotransferase 18 U/L (13-40); BUN/Creatinine Ratio 15.6 (10.0-20.0); Blood Urea Nitrogen 26 mg/dL (9-23); Calcium 9.7 mg/dL (8.7-10.4); Carbon Dioxide 32 mmol/L (20-31); Chloride 99 mmol/L (98-107); Glucose 260 mg/dL (74-106); Magnesium 2.4 mg/dL (1.6-2.6); Phosphorus 2.6 mg/dL (2.4-5.1); Potassium 3.3 mmol/L (3.5-5.1); Sodium 137 mmol/L (136-145)
[2024-01-16 16:58] LABS: Bilirubin, Total 0.6 mg/dL (0.2-1.0)
[2024-01-16 17:03] LABS: Lactic Acid w/Reflex 2.8 mmol/L (0.4-2.0)
[2024-01-16] MEDS: SODIUM CHLORIDE 0.9% 500 ML IV ONE (17:35)
[2024-01-16] MEDS ORDERED: FUROSEMIDE 40 MG TAB PO SCH (18:00)
--- NOTE | 2024-01-16 18:09 | DVHINCON2 ---
Date Seen: Jan 16, [address] Marin Reason for Consultation History of CHF and A-Fib History of Present Illness Nichole Bañuelos is a 78-year-old female patient who presents to the ED with chief complaint of loss of consciousness with mechanical fall with no prodromes. Patient reports intense right hand pain. Patient has amnesia ridge-event. Denies palpitation, chest pain, dyspnea, nausea, vomiting, diarrhea, constipation, bleeding, recent travel, unintentional weight loss and motor or sensory deficits. Past medical history: Hypertension, dyslipidemia, diabetes, diastolic congestive heart failure, CKD, lower limb and "chest" DVT, paroxysmal atrial fibrillation (chads Vasc 6/has bled 3) on Coumadin for the past 30 years, lung injury secondary to premature , on intermittent oxygen at home (2 liters/minute p.r.n.) Surgical history: Right knee replacement 2014, with revision in 2022. Bilateral carpal tunnel surgery, appendicectomy, partial hysterectomy, multiple skin cancer resection. Family history: Whole family had heart problems ([place]). Social history: Lives in [place] alone. Denies tobacco, alcohol and other drug abuse. Reports secondhand smoking. Home medication: Allopurinol (does not have gout), atorvastatin 80 mg p.o. daily, budesonide, duloxetine, Trelegy, Farxiga, furosemide 40 mg p.o. b.i.d., hydralazine 20 mg p.o. b.i.d., insulin, metoprolol 25 mg p.o. daily, potassium, semaglutide, warfarin (Mondays and 2 mg in rest of days 3 mg) Patient seen and examined at bedside. Currently has no new complaints. Has chest pain on palpation when she moves extremities. Sodium is within normal limits now. Telemetry shows SVT which alters with sinus bradycardia (SVT impresses AFib RVR) Past Medical History Per HPI Past Surgical History Per HPI Family History: FH: heart attack G8 MOTHER FH: kidney disease G8 FATHER FH: stroke G8 MOTHER Ischemic heart disease G8 FATHER Family History Per HPI Social History Per HPI Allergies: Coded Allergies: Codeine (Unverified Allergy, Severe, 01/23/14) Sulfa Antibiotics (Unverified Allergy, Severe, 01/23/14) Home Meds Reported Medications Insulin Lispro (Insulin Lispro Kwikpen) 100 Unit/Ml Inj, 4-6 UNIT SC TIDAC for 83 Days, #15 01/12/24 Brhcqdvynsa-Mqvnpvigoiks-Jlypo (Trelegy Ellipta 200-62.5-25 Mcg/INH) 1 Aer Aer, 1 PUFF IN DAILY for 30 Days, #60 01/12/24 Prednisone (Prednisone) 5 Mg Pawel, MG PO UD for 42 Days, #189 01/12/24 Budesonide (Inhalation) (Budesonide) 0.25 Mg/2 Ml Gayle, 1 VIAL NEB BID PRN for 30 Days, #120 01/12/24 Semaglutide (Ozempic) 2 Mg/3 Ml Inj, 0.5 MG SC QWEEKLY for 28 Days, #3 01/11/24 Insulin Glargine (Lantus) 100 Unit/Ml Inj, 16 UNIT SC QPM for 93 Days, #15 01/11/24 Hydralazine Hcl (Hydralazine Hcl) 25 Mg Tab, 1 TAB PO BID for 90 Days, #180 01/11/24 Ezetimibe (Zetia) 10 Mg Tab, 1 TAB PO DAILY for 90 Days, #90 01/11/24 Allopurinol (Allopurinol) 100 Mg Tab, 100 MG PO DAILY for 30 Days, MG 01/11/24 Tramadol Hcl (Tramadol Hcl) 50 Mg Tab, 50 MG PO Q6HP PRN for PAIN SCALE 1 THRU 6, MG 01/11/24 Atorvastatin Calcium (ATORVASTATIN CALCIUM) 80 Mg Tab, 80 MG PO DAILY, TAB 01/11/24 Furosemide (Furosemide) 40 Mg Tab, 1 TAB PO BID for 90 Days, #180 01/11/24 Trazodone Hcl (Trazodone Hcl) 50 Mg Tab, 1 TAB PO DAILY for 90 Days, #90 01/11/24 Duloxetine Hcl (Cymbalta) 60 Mg Cap, 1 TAB PO DAILY for 90 Days, #90 01/11/24 Potassium Chloride (Potassium Chloride ER) 10 Meq Tab, 1 TAB PO BID 01/10/24 Warfarin Sodium (Warfarin Sodium) 2 Mg Tab, 1 TAB PO DAILY 01/10/24 Metoprolol Succinate (Metoprolol Succinate Er) 25 Mg Tab, 25 MG PO DAILY, TAB 10/28/14 Discontinued Reported Medications Warfarin Sodium (Warfarin Sodium) 2.5 Mg Tab, 2.5 MG PO DAILY, TAB 10/28/14 Losartan Potassium (Losartan Potassium) 50 Mg Tab, 60 MG PO DAILY, TAB 10/28/14 Fenofibrate (Fenofibrate) 160 Mg Tab, 145 MG PO DAILY, TAB 10/28/14 Metformin Hydrochloride (Metformin Hcl) 500 Mg Tab, 500 MG PO BID, TAB 10/28/14 Duloxetine Hcl (Cymbalta) 60 Mg Cap, 60 MG PO DAILY, CAP 10/28/14 Current Medications Current Medications Medications (Trade) Dose Ordered Sig/Jennifer Route PRN Reason Start Time Stop Time Status Last Admin Insulin Glargine (Lantus) 20 units Q12HR SC 01/16/24 22:00 Review of Systems Per HPI Vital Signs Vital Signs Date Time Temp Pulse Resp B/P (MAP) Pulse Ox O2 Delivery O2 Flow Rate FiO2 01/16/24 17:03 98.2 91 16 141/71 (94) 100 98.2 01/16/24 07:30 Room Air* 0 21 Physical Exam Patient lying in bed, in no acute distress General: Lucid, afebrile, mucosae are moist Cardiovascular: Normal S1 and S2. No murmurs, gallops or rubs. Stabbing chest pain with superficial palpation on right hemithorax Respiratory: Normal ventilation mechanics. Clear lung sounds on auscultation Abdomen: Soft, nontender, no organomegaly, normal bowel sounds MSK/skin: Mobilizes 4 limbs. Skin is dry and warm. Right hand is casted, tenderness with movement. Neurological: Oriented in 3 spheres. No motor no sensitive deficits. Pupils are isocoric and reactive Labs/Diagnostic Data Labs Test 01/16/24 16:16 01/16/24 15:45 01/12/24 05:30 01/11/24 14:07 Range/Units POC Glucose 253 H 70-106 mg/dl White Blood Count 8.5 4.4-10.8 10^3/uL Red Blood Count 3.67 L 4.0-5.20 10^6/uL Hemoglobin 12.7 12.2-16.2 g/dL Hematocrit 37.2 # 36.0-46.0 % Mean Corpuscular Volume 101.3 H 80.0-100.0 fL Mean Corpuscular Hemoglobin 34.4 H 28.0-32.0 pg Mean Corpuscular Hemoglobin Concent 34.0 32.0-36.0 g/dL Red Cell Distribution Width 14.9 H 11.8-14.3 % Platelet Count 220 140-450 10^3/uL Mean Platelet Volume 10.3 6.9-10.8 fL Neutrophils (%) (Auto) 75.0 37.0-80.0 % Lymphocytes (%) (Auto) 15.8 10.0-50.0 % Monocytes (%) (Auto) 6.4 0.0-12.0 % Eosinophils (%) (Auto) 2.2 0.0-7.0 % Basophils (%) (Auto) 0.6 0.0-2.0 % Neutrophils # (Auto) 6.3 1.6-8.6 10 ^3/uL Lymphocytes # (Auto) 1.3 0.4-5.4 10 ^3/uL Monocytes # (Auto) 0.5 0-1.3 10 ^3/uL Eosinophils # (Auto) 0.2 0-0.8 10 ^3/uL Basophils # (Auto) 0.1 0-0.2 10 ^3/uL Nucleated Red Blood Cells 0.1 % Prothrombin Time 11.4 9.3-11.8 sec Prothrombin Time INR 1.08 0.9-1.15 Activated Partial Thromboplast Time 25.8 24.5-34.5 SEC Sodium Level 137 136-145 mmol/L Potassium Level 3.3 L 3.5-5.1 mmol/L Chloride Level 99 98-107 mmol/L Carbon Dioxide Level 32 H 20-31 mmol/L Anion Gap 6 5-15 Blood Urea Nitrogen 26 H 9-23 mg/dL Creatinine 1.67 H 0.550-1.02 mg/dL Glomerular Filtration Rate Calc 31 >90 mL/min BUN/Creatinine Ratio 15.6 10.0-20.0 Serum Glucose 260 H 74-106 mg/dL Lactic Acid Level 2.8 *H 0.4-2.0 mmol/L Calcium Level 9.7 8.7-10.4 mg/dL Phosphorus Level 2.6 2.4-5.1 mg/dL Magnesium Level 2.4 1.6-2.6 mg/dL Total Bilirubin 0.6 0.2-1.0 mg/dL Aspartate Amino Transferase (AST) 18 13-40 U/L Alanine Aminotransferase (ALT) 26 7-40 U/L Alkaline Phosphatase 136 H 46-116 U/L Ammonia < 10 L 11-32 umol/L B-Type Natriuretic Peptide 29.67 0-100 pg/mL Total Protein 6.0 5.7-8.2 g/dL Albumin 3.8 3.2-4.8 g/dL Vitamin B12 Level 772 211-911 pg/mL Vitamin D 25-Hydroxy 54.3 30.0-100 ng/mL Thyroid Stimulating Hormone (TSH) 0.56 0.55-4.78 uIU/mL Creatine Kinase 54 34-145 U/L Urine Creatinine 73.12 30.0-125.0 mg/dL Urine Protein/Creatinine Ratio 0.69 Urine Sodium 11 L 40-220 mmol/L Urine Total Protein 50.8 H 1-14 mg/dL Test 01/11/24 06:01 01/10/24 18:22 01/10/24 13:13 Range/Units Hemoglobin A1c 12.5 H <5.7 % A1C Parathyroid Hormone (Intact) 171.6 H 18.4-80.1 pg/mL Hepatitis B Surface Antigen Negative Negative Hepatitis C Antibody Negative Negative Urine Color Colorless Yellow Urine Clarity Clear Clear Urine pH 5.0 5.0-9.0 Urine Specific [place] 1.023 1.001-1.035 Urine Protein Negative Negative Urine Ketones Negative Negative Urine Blood Negative Negative /uL Urine Nitrite Negative Negative Urine Bilirubin Negative Negative Urine Urobilinogen Normal Negative mg/dL Urine Leukocyte Esterase 2+ Negative /uL Urine RBC 6 0 - 4 /hpf Urine WBC 58 0 - 5 /hpf Urine Squamous Epithelial Cells Few <5 /hpf Urine Bacteria Few H None Seen /hpf Urine Yeast (Budding) Occasional None Seen /hpf Urine Glucose 4+ H Normal mg/dL Troponin I High Sensitivity 12 </=34 ng/L Beta-Hydroxybutyric Acid 0.482 H < 0.4 mmol/L Microbiology Date/Time Source Procedure Growth Status 01/10/24 18:22 Voided Urine Urine Culture - Final Complete Assessment Metabolic encephalopathy secondary to hyponatremia and simple hyperglycemia Rule out cardiogenic Syncope Paroxysmal atrial fibrillation (chads Vasc 6/has bled 3) secondary hypercoagulability state - currently on apixaban History of lower limb and "chest" DVT - purely was on warfarin CKD History of diastolic congestive heart failure (HFpEF, LVEF 55%) Hypertension Diabetes Dyslipidemia Chronic respiratory failure with intermittent home oxygen (2 liters/minute) Plan/Recommendation Completed echocardiogram: LVEF 55%, grade 1 diastolic dysfunction, RVSP [address] and MRI: No acute pathology, chronic microvascular disease and old lacunar infarct in right basal ganglia. Right hand x-ray shows nondisplaced oblique fracture of distal 5th metacarpal Evidence on telemetry SVT (probable AFib RVR) at 150 beats per minute which altered with sinus bradycardia (high 50s). Currently on metoprolol 50 mg daily. If patient tolerates, no indication of pacemaker at this time. Hyponatremia has resolved (from 127-137) Simple hyperglycemia on insulin sliding scale and Lantus. HFpEF on Farxiga. Discussed plan with Dr. Nix, patient and nurses. Probable cause of altered mental status secondary to hyponatremia and hyperglycemia. We will monitor patient on telemetry. If patient tolerates metoprolol 50 mg p.o. daily, we will continue with this therapy. Plan discussed with: Patient, Other (Nurses) Date of Service: Jan 16, 2024 Billing Provider: CALI NIX MD Cardiology Common Codes: [id number] INP/OBS CARE (High), [id number] CARE 30-74 MIN [facility] RESIDENT Jan 16, 2024 18:08
--- NOTE | 2024-01-16 20:44 | DVHPN2 ---
Progress Note - Dictate Date Seen: Jan 16, 2024 Medical Necessity Reason Pt with a Central, PICC or Fol: No Subjective Ms. Bañuelos is an 78 years old right-handed female with a history of hypertension, diabetes, AFib on Coumadin, the patient came to the [facility] on 01/10/2024 with a chief company of fall injury. I have seen and examined the patient, I have discussed with her nurse, the patient is doing fine, alert and fully oriented When sitting up at bed earlier today, she developed dizziness, however the orthostatic vitals were negative We will get more orthostatic vitals Urinalysis, 01/10/2024: WBC: 58, urine leukocyte esterase: 2+ WBC/HB/PLT/MCV, 01/11/2024: 447/14.1/249/99.8 PT/INR/PTT, 01/11/2024: 17.9/1.76/31.6 BUN/CR, 01/11/2024: 42/2.01 Liver function tests, 01/11/2024: Unremarkable HGB A1c, 01/11/2024, 12.5 Glucose, 01/10/2024: 452, 451, 01/11/2024: 464 EEG, 01/12/2024: Normal Carotid Doppler, 01/11/2024: No acute findings in the arteries of the neck. X-ray, left shoulder, 01/11/2024: Nondisplaced oblique fracture of the distal fifth metacarpal. Mild soft tissue edema. There is no evidence of dislocation, blastic, or lytic lesions. No radiopaque foreign bodies. Osteopenia. MRI head, 01/11/2024: No evidence of acute infarction, intracranial hemorrhage, mass lesion or hydrocephalus. Moderate changes of chronic microvascular ischemic disease. Old lacunar infarct in the right basal ganglia vital signs Vital Sign Date Time Temp Pulse Resp B/P (MAP) Pulse Ox O2 Delivery O2 Flow Rate FiO2 01/16/24 17:03 98.2 91 16 141/71 (94) 100 98.2 01/16/24 07:30 Room Air* 0 21 Total Intake and Output 01/15/24 01/15/24 01/16/24 15:00 23:00 07:00 Intake Total 50 ml 150 ml Output Total 800 ml Balance 50 ml -650 ml medications Current Medications Medications Dose Ordered Sig/Jennifer Route Start Time Stop Time Status Last Admin Dose Admin Clonidine HCl 0.1 mg Q4HP PRN PO 01/10/24 19:15 Ondansetron HCl 4 mg Q4HP PRN IV 01/10/24 19:15 01/13/24 09:33 4 MG Docusate Sodium 100 mg BIDPRN PRN PO 01/10/24 19:15 Acetaminophen 650 mg Q6HP PRN PO 01/10/24 19:15 01/11/24 00:15 650 MG Morphine Sulfate 2 mg Q4HPRN PRN IV 01/10/24 19:15 01/13/24 09:56 2 MG Nitroglycerin 0.4 mg Q5MINP PRN SL 01/10/24 19:15 Morphine Sulfate 2 mg Q30M PRN IV 01/10/24 19:15 Metoprolol Succinate 50 mg DAILY PO 01/12/24 10:00 01/16/24 09:43 50 MG Acetaminophen/ Hydrocodone Bitart 1 tab Q4HPRN PRN PO 01/11/24 12:15 01/14/24 17:55 1 TAB Apixaban 2.5 mg BID PO 01/11/24 22:00 01/16/24 09:43 2.5 MG Cephalexin 500 mg BID PO 01/12/24 22:00 01/16/24 09:43 500 MG Meclizine HCl 25 mg Q8HPRN PRN PO 01/13/24 13:00 01/13/24 13:17 25 MG Diagnostic Test (Pha) 1 strip IQ4HR 01/15/24 04:00 01/16/24 20:09 1 STRIP Insulin Human Regular IQ4HR SC 01/15/24 04:00 01/16/24 20:10 12 UNITS Dextrose 50 ml UD PRN IV 01/15/24 00:45 Insulin Glargine 20 units Q12HR SC 01/16/24 22:00 objective General: the patient is well developed and nourished. No acute distress. MENTAL STATUS: Awake and alert. Oriented to person, place, time and general circumstances. Able to give personal history SPEECH, LANGUAGE, HIGHER CORTICAL FUNCTION: no aphasia or dysathria. CRANIAL NERVES: Pupils are equal, round and reactive. EOMs full and conjugate. No nystagmus. Facial sensation intact in all three divisions bilaterally. Mandibular strength intact. Facial muscles symmetrical and strength intact. SENSATION: Sensation to touch and pinprick is normal. MOTOR: Normal tone in the upper and lower extremity. Normal muscle bulk. No fasciculations. No abnormal movements or posturing. Muscle strength of the major groups in the extremities is 5/5. REFLEXES: Deep tendon reflexes are symmetrical. No pathological reflexes. CEREBELLAR/COORDINATION: Finger to nose is normal bilaterally. GAIT/STATION: deferred. laboratory and microbiology Laboratory Tests 01/16/24 15:45 Test 01/16/24 15:45 Range/Units Serum Glucose 260 H 74-106 mg/dL Problem List Fall injury with amnesia, ? Syncope, ? Partial simple seizure Finger fracture Uncontrolled diabetes Dizziness, to rule out orthostatic hypotension Assessment/Plan Monitoring Supportive treatment Telemetry Orthostatic vitals (talked to her nurse) Syncope precautions discussed This medical document was created using an electronic medical record system with [employer] dictation system. Although this document has been carefully reviewed, there may still be some phonetic and typographical errors. These areas are purely typographical due to imperfections of the software programs, and do not reflect any compromise in the patient's medical care. Prognosis poor Plan discussed with: Patient, Other BONNY LUGO MD Jan 16, 2024 20:44
[2024-01-16] MEDS: INSULIN LANTUS (GLARGINE) 1 /0.01ml (100units/ml) SC SCH (22:25)
[2024-01-17] VITALS (7 sets, daily range): BP systolic 116–140; BP diastolic 49–70; PULSE 70–86; RESP 15–20; TEMP 97.4–98.6; O2SAT 95–98
[2024-01-17 06:57] LABS: Basophils # (auto) 0.1 10 ^3/uL (0-0.2); Hemoglobin 12.1 g/dL (12.2-16.2); Monocytes # (auto) 0.6 10 ^3/uL (0-1.3); Neutrophils # (auto) 4.5 10 ^3/uL (1.6-8.6)
[2024-01-17 06:58] LABS: Basophils % (auto) 0.9 % (0.0-2.0); Eosinophils # (auto) 0.3 10 ^3/uL (0-0.8); Eosinophils % (auto) 3.3 % (0.0-7.0); Hematocrit 36.6 % (36.0-46.0); Lymphocytes # (auto) 2.1 10 ^3/uL (0.4-5.4); Lymphocytes % (auto) 27.9 % (10.0-50.0); Mean Corpuscular Hemoglobin 34.1 pg (28.0-32.0); Mean Corpuscular Hgb Conc. 33.2 g/dL (32.0-36.0); Mean Corpuscular Volume 102.8 fL (80.0-100.0); Monocytes % (auto) 8.5 % (0.0-12.0); Neutrophils % (auto) 59.4 % (37.0-80.0); Platelet Count (auto) 209 10^3/uL (140-450); Red Blood Cells 3.56 10^6/uL (4.0-5.20); Red Cell Distribution Width 15.2 % (11.8-14.3); White Blood Cell 7.5 10^3/uL (4.4-10.8)
[2024-01-17 07:09] LABS: Alanine Aminotransferase 24 U/L (7-40); Albumin 3.7 g/dL (3.2-4.8); Alkaline Phosphatase 125 U/L (46-116); Anion Gap 5 (5-15); Aspartate Aminotransferase 16 U/L (13-40); BUN/Creatinine Ratio 19.4 (10.0-20.0); Blood Urea Nitrogen 28 mg/dL (9-23); Calcium 9.8 mg/dL (8.7-10.4); Carbon Dioxide 32 mmol/L (20-31); Chloride 103 mmol/L (98-107); Glucose 100 mg/dL (74-106); Magnesium 2.7 mg/dL (1.6-2.6); Potassium 3.7 mmol/L (3.5-5.1); Sodium 140 mmol/L (136-145)
[2024-01-17 07:10] LABS: Bilirubin, Total 0.6 mg/dL (0.2-1.0); Total Protein 5.8 g/dL (5.7-8.2)
--- NOTE | 2024-01-17 09:14 | DVHPNRES ---
Progress Note Date Seen: Jan 17, 2024 Resident Creating Document: [facility] RESIDENT Medical Necessity Reason Pt with a Central, PICC or Fol: No Subjective Review of Systems Nichole Bañuelos is a 78-year-old female patient who presents to the ED with chief complaint of loss of consciousness with mechanical fall with no prodromes. Patient reports intense right hand pain. Patient has amnesia ridge-event. On arrival to ED she presented hyponatremia, hyperglycemia and orthostatic hypotension. Denies palpitation, chest pain, dyspnea, nausea, vomiting, diarrhea, constipation, bleeding, recent travel, unintentional weight loss and motor or sensory deficits. Past medical history: Hypertension, dyslipidemia, diabetes, diastolic congestive heart failure, CKD, lower limb and "chest" DVT, paroxysmal atrial fibrillation (chads Vasc 6/has bled 3) on Coumadin for the past 30 years, lung injury secondary to premature , on intermittent oxygen at home (2 liters/minute p.r.n.) Surgical history: Right knee replacement 2014, with revision in 2022. Bilateral carpal tunnel surgery, appendicectomy, partial hysterectomy, multiple skin cancer resection. Family history: Whole family had heart problems ([place]). Social history: Lives in [place] alone. Denies tobacco, alcohol and other drug abuse. Reports secondhand smoking. Home medication: Allopurinol (does not have gout), atorvastatin 80 mg p.o. daily, budesonide, duloxetine, Trelegy, Farxiga, furosemide 40 mg p.o. b.i.d., hydralazine 20 mg p.o. b.i.d., insulin, metoprolol 25 mg p.o. daily, potassium, semaglutide, warfarin (Mondays and 2 mg in rest of days 3 mg) Patient seen and examined at bedside. Currently has no new complaints. Has chest pain on palpation and when she moves extremities. Sodium is within normal limits now. Telemetry shows SVT which alters with sinus bradycardia (SVT impresses AFib RVR) Objective vital signs Vital Sign Date Time Temp Pulse Resp B/P (MAP) Pulse Ox O2 Delivery O2 Flow Rate FiO2 01/17/24 08:45 97.4 77 19 140/70 (93) 97 97.4 01/17/24 07:30 Room Air* 0 21 Total Intake and Output 1101/16/24 01/17/24 15:00 23:00 07:00 Intake Total 1300 ml 250 ml Output Total 200 ml Balance 1300 ml 50 ml medications Current Medications Medications Dose Ordered Sig/Jennifer Route Start Time Stop Time Status Last Admin Dose Admin Clonidine HCl 0.1 mg Q4HP PRN PO 01/10/24 19:15 Ondansetron HCl 4 mg Q4HP PRN IV 01/10/24 19:15 01/13/24 09:33 4 MG Docusate Sodium 100 mg BIDPRN PRN PO 01/10/24 19:15 Acetaminophen 650 mg Q6HP PRN PO 01/10/24 19:15 01/17/24 02:08 650 MG Morphine Sulfate 2 mg Q4HPRN PRN IV 01/10/24 19:15 01/13/24 09:56 2 MG Nitroglycerin 0.4 mg Q5MINP PRN SL 01/10/24 19:15 Morphine Sulfate 2 mg Q30M PRN IV 01/10/24 19:15 Metoprolol Succinate 50 mg DAILY PO 01/12/24 10:00 01/16/24 09:43 50 MG Acetaminophen/ Hydrocodone Bitart 1 tab Q4HPRN PRN PO 01/11/24 12:15 01/14/24 17:55 1 TAB Apixaban 2.5 mg BID PO 01/11/24 22:00 01/16/24 22:06 2.5 MG Cephalexin 500 mg BID PO 01/12/24 22:00 01/16/24 22:06 500 MG Meclizine HCl 25 mg Q8HPRN PRN PO 01/13/24 13:00 01/13/24 13:17 25 MG Diagnostic Test (Pha) 1 strip IQ4HR 01/15/24 04:00 01/17/24 08:40 1 STRIP Insulin Human Regular IQ4HR SC 01/15/24 04:00 01/17/24 00:19 3 UNITS Dextrose 50 ml UD PRN IV 01/15/24 00:45 Insulin Glargine 20 units Q12HR SC 01/16/24 22:00 01/16/24 22:25 20 UNITS Atorvastatin Calcium 80 mg HS PO 01/17/24 22:00 UNV EZETIMIBE 10 mg DAILY PO 01/17/24 10:00 UNV Examination Patient lying in bed, in no acute distress General: Lucid, afebrile, mucosae are moist Cardiovascular: Normal S1 and S2. No murmurs, gallops or rubs. Stabbing chest pain with superficial palpation on right hemithorax Respiratory: Normal ventilation mechanics. Clear lung sounds on auscultation Abdomen: Soft, nontender, no organomegaly, normal bowel sounds MSK/skin: Mobilizes 4 limbs. Skin is dry and warm. Right hand is casted, tenderness with movement. Neurological: Oriented in 3 spheres. No motor no sensitive deficits. Pupils are isocoric and reactive laboratory and microbiology Laboratory Tests 01/17/24 05:36 Test 01/17/24 05:36 Range/Units Serum Glucose 100 74-106 mg/dL Microbiology Date/Time Source Procedure Growth Status 01/10/24 18:22 Voided Urine Urine Culture - Final Complete Problem List/Assessment/Plan Problem List/Assessment/Plan Assessment Metabolic encephalopathy secondary to hyponatremia and simple hyperglycemia Probable orthostatic syncope Paroxysmal atrial fibrillation (chads Vasc 6/has bled 3) secondary hypercoagulability state - currently on apixaban History of lower limb and "chest" DVT - was on warfarin CKD History of diastolic congestive heart failure (HFpEF, LVEF 55%) Hypertension Diabetes Dyslipidemia Chronic respiratory failure with intermittent home oxygen (2 liters/minute) Plan/Recommendation Completed echocardiogram: LVEF 55%, grade 1 diastolic dysfunction, RVSP [address] and MRI: No acute pathology, chronic microvascular disease and old lacunar infarct in right basal ganglia. Right hand x-ray shows nondisplaced oblique fracture of distal 5th metacarpal Evidence on telemetry SVT (probable AFib RVR) at 150 beats per minute which altered with sinus bradycardia (high 50s). Currently on metoprolol 50 mg daily. If patient tolerates, no indication of pacemaker at this time. Hyponatremia has resolved (from 127-137) Simple hyperglycemia on insulin sliding scale and Lantus. HFpEF on Farxiga, discontinued due to orthostatic hypotension. Discussed plan with Dr. Nix, patient and nurses. Probable cause of altered mental status secondary to hyponatremia and hyperglycemia, syncope probably secondary orthostatism. Telemetry evidence paroxysmal AFib RVR, which responded to metoprolol, has been asymptomatic, an has been on sinus rhythm for the past 24 hours. Recommend event monitor as outpatient with primary coordinate measuring machine operator (Dr. Barragan). Continue with apixaban, have discontinued diuretics, and hydralazine due to orthostatic hypotension. Patient currently hemodynamically stable, asymptomatic, not concerning Mak arrhythmias on telemetry strip (lowest heart rate approximately 50 beats per minute, asymptomatic). No further cardiological workup during this admission. Recommend outpatient event monitor and avoid antihypertensive medication and diuretics. Suggest follow up with coordinate measuring machine operator to optimize medication and to place event monitor. Have discussed extensively with son via phone. You will sign off the case. Please reconsult if needed, thank you. Plan discussed with: Patient, Son, Other (Nurses) My Orders My Orders Orders - [facility] Procedure Category Date Status Time Drug Screen LAB 01/16/24 Logged 14:59 Uric Acid LAB 01/17/24 Logged 08:56 Atorvastatin (Lipitor) PHA 01/17/24 Logged 22:00 Ezetimibe (Zetia) PHA 01/17/24 Logged 10:00 Visit Coding Cardiology RES Date of Service: Jan 17, 2024 Billing Provider: CALI NIX MD Cardiology Common Codes: [id number] HOSP CARE(High, [id number] CARE 30-74 MIN [facility] RESIDENT Jan 17, 2024 09:14
[2024-01-17] MEDS: EZETIMIBE 10 MG TAB PO SCH (09:38)
[2024-01-17] MEDS ORDERED: APIX2.5T PO ×2 (10:23→17:45)
--- NOTE | 2024-01-17 10:25 | DVHPN2 ---
Progress Note - Dictate Date Seen: Jan 17, 2024 Medical Necessity Reason Pt with a Central, PICC or Fol: No Subjective Ms. Bañuelos is an 78 years old right-handed female with a history of hypertension, diabetes, AFib on Coumadin, the patient came to the [facility] on 01/10/2024 with a chief company of fall injury. I have seen and examined the patient, I have discussed with her nurse other medical staff, the patient is doing fine, alert and fully oriented, normal dizziness Orthostatic vitals from last night were normal Urinalysis, 01/10/2024: WBC: 58, urine leukocyte esterase: 2+ WBC/HB/PLT/MCV, 01/11/2024: 447/14.1/249/99.8 PT/INR/PTT, 01/11/2024: 17.9/1.76/31.6 BUN/CR, 01/11/2024: 42/2.01 Liver function tests, 01/11/2024: Unremarkable HGB A1c, 01/11/2024, 12.5 Glucose, 01/10/2024: 452, 451, 01/11/2024: 464 EEG, 01/12/2024: Normal Carotid Doppler, 01/11/2024: No acute findings in the arteries of the neck. X-ray, left shoulder, 01/11/2024: Nondisplaced oblique fracture of the distal fifth metacarpal. Mild soft tissue edema. There is no evidence of dislocation, blastic, or lytic lesions. No radiopaque foreign bodies. Osteopenia. MRI head, 01/11/2024: No evidence of acute infarction, intracranial hemorrhage, mass lesion or hydrocephalus. Moderate changes of chronic microvascular ischemic disease. Old lacunar infarct in the right basal ganglia vital signs Vital Sign Date Time Temp Pulse Resp B/P (MAP) Pulse Ox O2 Delivery O2 Flow Rate FiO2 01/17/24 09:38 77 140/70 01/17/24 08:45 97.4 19 97 97.4 01/17/24 07:30 Room Air* 0 21 Total Intake and Output 01/16/24 01/16/24 01/17/24 15:00 23:00 07:00 Intake Total 1300 ml 250 ml Output Total 200 ml Balance 1300 ml 50 ml medications Current Medications Medications Dose Ordered Sig/Jennifer Route Start Time Stop Time Status Last Admin Dose Admin Clonidine HCl 0.1 mg Q4HP PRN PO 01/10/24 19:15 Ondansetron HCl 4 mg Q4HP PRN IV 01/10/24 19:15 01/13/24 09:33 4 MG Docusate Sodium 100 mg BIDPRN PRN PO 01/10/24 19:15 Acetaminophen 650 mg Q6HP PRN PO 01/10/24 19:15 01/17/24 09:37 650 MG Morphine Sulfate 2 mg Q4HPRN PRN IV 01/10/24 19:15 01/13/24 09:56 2 MG Nitroglycerin 0.4 mg Q5MINP PRN SL 01/10/24 19:15 Morphine Sulfate 2 mg Q30M PRN IV 01/10/24 19:15 Metoprolol Succinate 50 mg DAILY PO 01/12/24 10:00 01/17/24 09:38 50 MG Acetaminophen/ Hydrocodone Bitart 1 tab Q4HPRN PRN PO 01/11/24 12:15 01/14/24 17:55 1 TAB Apixaban 2.5 mg BID PO 01/11/24 22:00 01/17/24 09:38 2.5 MG Cephalexin 500 mg BID PO 01/12/24 22:00 01/17/24 09:37 500 MG Meclizine HCl 25 mg Q8HPRN PRN PO 01/13/24 13:00 01/13/24 13:17 25 MG Diagnostic Test (Pha) 1 strip IQ4HR 01/15/24 04:00 01/17/24 08:40 1 STRIP Insulin Human Regular IQ4HR SC 01/15/24 04:00 01/17/24 00:19 3 UNITS Dextrose 50 ml UD PRN IV 01/15/24 00:45 Insulin Glargine 20 units Q12HR SC 01/16/24 22:00 01/17/24 09:40 20 UNITS Atorvastatin Calcium 80 mg HS PO 01/17/24 22:00 EZETIMIBE 10 mg DAILY PO 01/17/24 10:00 01/17/24 09:38 10 MG objective General: the patient is well developed and nourished. No acute distress. MENTAL STATUS: Awake and alert. Oriented to person, place, time and general circumstances. Able to give personal history SPEECH, LANGUAGE, HIGHER CORTICAL FUNCTION: no aphasia or dysathria. CRANIAL NERVES: Pupils are equal, round and reactive. EOMs full and conjugate. No nystagmus. Facial sensation intact in all three divisions bilaterally. Mandibular strength intact. Facial muscles symmetrical and strength intact. SENSATION: Sensation to touch and pinprick is normal. MOTOR: Normal tone in the upper and lower extremity. Normal muscle bulk. No fasciculations. No abnormal movements or posturing. Muscle strength of the major groups in the extremities is 5/5. REFLEXES: Deep tendon reflexes are symmetrical. No pathological reflexes. CEREBELLAR/COORDINATION: Finger to nose is normal bilaterally. GAIT/STATION: deferred. laboratory and microbiology Laboratory Tests 01/17/24 05:36 Test 01/17/24 05:36 Range/Units Serum Glucose 100 74-106 mg/dL Problem List Fall injury with amnesia, ? Syncope, ? Partial simple seizure Finger fracture Uncontrolled diabetes Dizziness, to rule out orthostatic hypotension Assessment/Plan Monitoring Supportive treatment Telemetry Orthostatic vitals (talked to her nurse) Syncope precautions discussed This medical document was created using an electronic medical record system with [employer] dictation system. Although this document has been carefully reviewed, there may still be some phonetic and typographical errors. These areas are purely typographical due to imperfections of the software programs, and do not reflect any compromise in the patient's medical care. Prognosis poor Plan discussed with: Patient, Other BONNY LUGO MD Jan 17, 2024 10:25
--- NOTE | 2024-01-17 12:30 | DVHDS2 ---
Discharge Summary Date of Admission Jan 10, 2024 at 19:06 Date of Discharge: Jan 17, 2024 Labs/Diagnostic Data: Laboratory Results Test 01/17/24 12:04 01/17/24 05:36 01/16/24 18:05 01/16/24 15:45 POC Glucose 244 mg/dl (70-106) White Blood Count 7.5 10^3/uL (4.4-10.8) Red Blood Count 3.56 10^6/uL (4.0-5.20) Hemoglobin 12.1 g/dL (12.2-16.2) Hematocrit 36.6 % (36.0-46.0) Mean Corpuscular Volume 102.8 fL (80.0-100.0) Mean Corpuscular Hemoglobin 34.1 pg (28.0-32.0) Mean Corpuscular Hemoglobin Concent 33.2 g/dL (32.0-36.0) Red Cell Distribution Width 15.2 % (11.8-14.3) Platelet Count 209 10^3/uL (140-450) Mean Platelet Volume 10.2 fL (6.9-10.8) Neutrophils (%) (Auto) 59.4 % (37.0-80.0) Lymphocytes (%) (Auto) 27.9 % (10.0-50.0) Monocytes (%) (Auto) 8.5 % (0.0-12.0) Eosinophils (%) (Auto) 3.3 % (0.0-7.0) Basophils (%) (Auto) 0.9 % (0.0-2.0) Neutrophils # (Auto) 4.5 10 ^3/uL (1.6-8.6) Lymphocytes # (Auto) 2.1 10 ^3/uL (0.4-5.4) Monocytes # (Auto) 0.6 10 ^3/uL (0-1.3) Eosinophils # (Auto) 0.3 10 ^3/uL (0-0.8) Basophils # (Auto) 0.1 10 ^3/uL (0-0.2) Nucleated Red Blood Cells 0.0 % Sodium Level 140 mmol/L (136-145) Potassium Level 3.7 mmol/L (3.5-5.1) Chloride Level 103 mmol/L (98-107) Carbon Dioxide Level 32 mmol/L (20-31) Anion Gap 5 (5-15) Blood Urea Nitrogen 28 mg/dL (9-23) Creatinine 1.44 mg/dL (0.550-1.02) Glomerular Filtration Rate Calc 37 mL/min (>90) BUN/Creatinine Ratio 19.4 (10.0-20.0) Serum Glucose 100 mg/dL (74-106) Uric Acid 7.0 mg/dL (3.1-7.8) Calcium Level 9.8 mg/dL (8.7-10.4) Magnesium Level 2.7 mg/dL (1.6-2.6) Total Bilirubin 0.6 mg/dL (0.2-1.0) Aspartate Amino Transferase (AST) 16 U/L (13-40) Alanine Aminotransferase (ALT) 24 U/L (7-40) Alkaline Phosphatase 125 U/L (46-116) Total Protein 5.8 g/dL (5.7-8.2) Albumin 3.7 g/dL (3.2-4.8) Lactic Acid Level 1.8 mmol/L (0.4-2.0) Prothrombin Time 11.4 sec (9.3-11.8) Prothrombin Time INR 1.08 (0.9-1.15) Activated Partial Thromboplast Time 25.8 SEC (24.5-34.5) Phosphorus Level 2.6 mg/dL (2.4-5.1) Ammonia < 10 umol/L (11-32) B-Type Natriuretic Peptide 29.67 pg/mL (0-100) Vitamin B12 Level 772 pg/mL (211-911) Vitamin D 25-Hydroxy 54.3 ng/mL (30.0-100) Thyroid Stimulating Hormone (TSH) 0.56 uIU/mL (0.55-4.78) Test 01/12/24 05:30 01/11/24 14:07 01/11/24 06:01 01/10/24 18:22 Creatine Kinase 54 U/L (34-145) Urine Creatinine 73.12 mg/dL (30.0-125.0) Urine Protein/Creatinine Ratio 0.69 Urine Sodium 11 mmol/L (40-220) Urine Total Protein 50.8 mg/dL (1-14) Hemoglobin A1c 12.5 % A1C (<5.7) Parathyroid Hormone (Intact) 171.6 pg/mL (18.4-80.1) Hepatitis B Surface Antigen Negative (Negative) Hepatitis C Antibody Negative (Negative) Urine Color Colorless (Yellow) Urine Clarity Clear (Clear) Urine pH 5.0 (5.0-9.0) Urine Specific Spencer 1.023 (1.001-1.035) Urine Protein Negative (Negative) Urine Ketones Negative (Negative) Urine Blood Negative /uL (Negative) Urine Nitrite Negative (Negative) Urine Bilirubin Negative (Negative) Urine Urobilinogen Normal mg/dL (Negative) Urine Leukocyte Esterase 2+ /uL (Negative) Urine RBC 6 /hpf (0 - 4) Urine WBC 58 /hpf (0 - 5) Urine Squamous Epithelial Cells Few /hpf (<5) Urine Bacteria Few /hpf (None Seen) Urine Yeast (Budding) Occasional /hpf (None Urine Glucose 4+ mg/dL (Normal) Test 01/10/24 13:13 Troponin I High Sensitivity 12 ng/L (</=34) Beta-Hydroxybutyric Acid 0.482 mmol/L (< 0.4) Other Laboratory Tests 01/17/24 05:36 Brief Hx & Hospital Course: Final diagnosis: Fall Right hand nondisplaced fracture of the distal 5th metacarpal Syncope CKD h/o CHF Paroxysmal afib on Coumadin h/o DVT and PE HTN 78-year-old female who fell at home and had her right hand injured which resulted in a distal 5th metacarpal bone fracture and right-sided rib cage bruises and bilateral knees abrasions Evaluation for the syncope was negative The fracture of the right hand was treated with an Reid wrap She was having nausea and vomiting and dizziness She was taking Lasix at home Here he was restarted on her medications including Lasix but she became more symptomatic so it was discontinued, she was given a bolus of 500 mL IV fluids overnight and today she was feeling better Her vital signs now show no or systolic hypotension after the hydration Cardiology saw the patient and recommended to discontinue hydralazine. She takes warfarin at home which also will be discontinued and it will be replaced with Eliquis Overall the patient was feeling better now and therefore she will be discharged home today on Eliquis 2.5 mg twice a day, discontinue hydralazine, continue metoprolol and the other home medications including Lasix Follow up with primary care physician as soon as possible Condition at Discharge: Stable Final Diagnosis/Problems List Fall Right hand nondisplaced fracture of the distal 5th metacarpal Syncope CKD h/o CHF Paroxysmal afib on Coumadin h/o DVT and PE HTN Discharge Disposition: Home SNF Discharge Will this Physician continue t: No Discharge Instruct/Medications Diet: Cardiac 2g Na,low cholest Activity: No Restrictions, As Tolerated Follow Up/Referral: PCP 1-2 weeks Medications: Eliquis 2.5 mg bid DC Coumadin Resume the other home meds Discharge Statement: "Patient was advised to return to the ER or call 911 if any headaches, dizziness, shortness of breath, chest pain, abdominal pain, bleeding, fevers, or worsening of medical condition. Patient was counseled about treatment plan, medications, possible side effects, patientverbalized understanding. All questions were answered to the best of my ability. This discharge took greater then 30 minutes in planning, reviewing documentation, counseling the patient, and discussing with other team members." ASSESSMENT ASSESSMENT Assessment Fall Right hand nondisplaced fracture of the distal 5th metacarpal Syncope CKD h/o CHF Paroxysmal afib on Coumadin h/o DVT and PE HTN Date of Service: Jan 17, 2024 Billing Provider: ANTHONY REYES MD Common Visit Codes: NOT BILLABLE ANTHONY REYES MD Jan 17, 2024 12:30
[2024-01-17] MEDS ORDERED: ATORVASTATIN 20 MG TAB PO SCH (22:00)
== END 2024-01-17 18:30 | disposition home or self-care (01) | DRG 637 ==
LOC: EDBD 11:51 → ER 11:59 → TELE 19:06 → TELE-EAST 19:14
PROVIDERS: ADMIT Nurse Practitioner Family; ATTEND Internal Medicine Geriatric Medicine
DX: E11.65 Type 2 diabetes mellitus with hyperglycemia (principal); N17.0 Acute kidney failure with tubular necrosis; I13.0 Hypertensive heart and chronic kidney disease with heart failure and stage 1 through stage 4 chronic kidney disease, or unspecified chronic kidney disease; D68.59 Other primary thrombophilia; N39.0 Urinary tract infection, site not specified; I47.10 Supraventricular tachycardia, unspecified; J96.10 Chronic respiratory failure, unspecified whether with hypoxia or hypercapnia; N18.4 Chronic kidney disease, stage 4 (severe); E87.1 Hypo-osmolality and hyponatremia; E86.0 Dehydration; E11.22 Type 2 diabetes mellitus with diabetic chronic kidney disease; I48.0 Paroxysmal atrial fibrillation; Z96.651 Presence of right artificial knee joint; G56.03 Carpal tunnel syndrome, bilateral upper limbs; S09.90XA Unspecified injury of head, initial encounter; M79.18 Myalgia, other site; R41.3 Other amnesia; E78.5 Hyperlipidemia, unspecified; R00.1 Bradycardia, unspecified; S62.396A Other fracture of fifth metacarpal bone, right hand, initial encounter for closed fracture; W18.39XA Other fall on same level, initial encounter; S80.212A Abrasion, left knee, initial encounter; S80.211A Abrasion, right knee, initial encounter; J44.9 Chronic obstructive pulmonary disease, unspecified; S20.211A Contusion of right front wall of thorax, initial encounter; I95.1 Orthostatic hypotension; Z88.5 Allergy status to narcotic agent; Z88.2 Allergy status to sulfonamides; Z90.711 Acquired absence of uterus with remaining cervical stump; Z82.3 Family history of stroke; Z82.49 Family history of ischemic heart disease and other diseases of the circulatory system; Z99.81 Dependence on supplemental oxygen; Z85.828 Personal history of other malignant neoplasm of skin; Y93.89 Activity, other specified; Y99.8 Other external cause status; Y92.098 Other place in other non-institutional residence as the place of occurrence of the external cause; Z79.899 Other long term (current) drug therapy; Z86.73 Personal history of transient ischemic attack (TIA), and cerebral infarction without residual deficits
CPT/HCPCS: 36415; 70450; 70551; 71045; 71101; 73030; 73130; 76775; 80048; 80053; 81001; 82010; 82140; 82306; 82550; 82570; 82607; 82962; 83036; 83605; 83735; 83880; 83970; 84100; 84156; 84300; 84443; 84484; 84550; 85025; 85610; 85730; 86803; 87086; 87340; 93005; 93306; 93886; 95819; 96361; 96365; 96367; 96375; 97110; 97116; 97163; 97530; 99291; G0378; J1815; J2405; J2543